=== PATIENT | female | born 1950 | race Caucasian/White ===

== ENCOUNTER 2017-09-10 17:40 | Emergency (ER) | payer MEDICARE, MEDICAID, SELFPAY ==
[2017-09-10 17:40] VITALS: BP 195/78; PULSE 70; RESP 16; TEMP 36.8; O2SAT 98; BMI 31.1
[2017-09-10 18:17] LABS: Bacteria 0 SEEN /hpf (None Seen); Mucous, Urine 0 SEEN /hpf (<or=2+)
[2017-09-10] MEDS: 0.9% Normal Saline 1,000 ML 1000 ML IV (18:18)
[2017-09-10 18:23] LABS: Color, Urine Red (Yellow); Glucose, Dipstick Normal (Normal); Ketone-Dipstick 15 mg/dl (Negative); Leukocyte Esterase-Dipstick 500 /ul (Negative); Nitrite-Dipstick Negative (Negative); Occult Blood-Urine 250 /ul (Negative); Protein-Dipstick 500 mg/dl (Negative); Specific Gravity, Urine 1.015 (1.002-1.030); Urine Bilirubin Dipstick Negative (Negative); Urine Clarity Turbid (Clear); Urine Urobilinogen Normal (Normal); Urine pH 6.5 (5.0 - 8.0)
[2017-09-10 18:31] LABS: Absolute Lymphocyte Count 1.44 X10^3/ul (0.83-4.51); Absolute Neutrophil Count 7.9 X10^3/uL (2.0-7.7); Basophil# 0.01 X10^3/uL; Basophil% 0.1 % (0-1); Eosinophil# 0.09 X10^3/uL; Eosinophils% 0.9 % (0-5); Hematocrit 36.3 % (37-47); Lymphocyte # 1.44 X10^3/ul (4.0); Lymphocyte % 14.4 % (19-41); Mean Corp Hgb Conc 33.1 g/gl (32-36); Mean Corpuscular Hgb 30.5 pg (27.0-32.0); Mean Corpuscular Volume 92.1 fL (81-99); Mean Platelet Vol. 9.6 fl (6.2-12.0); Monocyte# 0.54 X10^3/uL; Monocyte% 5.4 % (0-10); Neutrophil # 7.93 X10^3/uL (2.7-7.7); Neutrophil % 79.1 % (47-70); Platelet Count 250 K/mm3 (150-450); RBC Distribution Width CV 13.8 % (11.6-14.6); RBC Distribution Width SD 46.9 fl (35.1-43.9); Red Blood Count 3.94 M/mm3 (4.2-5.4)
[2017-09-10 18:35] LABS: Squamous Epithelial Cells - UA 0-5 SEEN /hpf (5-10)
[2017-09-10 18:36] LABS: POSITIVE COUNT NO; POSITIVE DIFFERENTIAL NO; POSITIVE MORPHOLOGY NO
[2017-09-10 18:37] LABS: Red Blood Cells-Urine > 100 SEEN /hpf (0-5); White Blood Cells 10-25 SEEN /hpf (0-5)
[2017-09-10 18:40] LABS: Anion Gap 11 (5-15); BUN 33 mg/dL (7-18); BUN/Creat Ratio 29.7 RATIO (10-20); Calcium,Total 8.6 mg/dL (8.5-10.1); Chloride 98 mmol/L (98-107); Creatinine, Serum 1.11 mg/dL (0.55-1.02); EST Glomerular Filtration Rate 52 mL/min (>60); Est Glom Filt Rate - Afr Amer 63 mL/min (>60); Glucose 209 mg/dL (74-106); Potassium 4.1 mmol/L (3.5-5.1); Sodium Level 131 mmol/L (136-145)
--- NOTE | 2017-09-10 19:19 | ED.VISSUMM ---
- ER Visit Summary Date of Service: 09/10/17 Chief Complaint: Blood in urine History of Present Illness: The patient is a 67 F presenting with blood in urine. She states this started today. She complains of dysuria, hematuria, urinary frequency. Denies urinary retention. She has mild diarrhea. Denies fever. Denies abdominal pain. Denies back pain. She is on Plavix. Denies other complaints. Physical Examination: Vitals are stable. Patient is afebrile. Alert no acute distress. HEENT exam is unremarkable. Neck is supple. Lungs are clear and equal bilaterally. Heart is regular rate and rhythm. Abdomen is soft nontender nondistended. Back is nontender Extremities are unremarkable. Skin is warm and dry. No focal neurologic deficit. Remainder of exam is unremarkable. Emergency Department Course and Treatment: CBC is unremarkable. Chemistries show BUN 33, creatinine 1.11. This is improved from baseline. Urinalysis shows 10-25 white blood cells, over 100 red blood cells. Urine culture was sent. She states she has had problems with multiple antibiotics in the past and has done well with Bactrim. She is given Bactrim and a prescription for Bactrim. She is given urology for follow-up. She is advised signs and symptoms for which to return to the ED. Agreeable with discharge home and will return to ED if she has worsening complaints. Disposition: Discharge home Impression: Hematuria This note was generated with [employer] dictation software. It may contain incorrect words, spelling, and punctuation that were not noted in review of the chart prior to signing ED Disposition - Plan for ED Patient: Chief Complaint: Complaint Referrals: Anali Daley DO [Primary Care Provider] -
--- NOTE | 2017-09-10 19:22 | ED.DEP ---
ED Disposition - Plan for ED Patient: Chief Complaint: Complaint Instructions: ED UTI Cystitis Female, ED Hematuria Prescriptions: Smz/Tmp Ds [Bactrim Ds] 1 tablet PO BID #14 tablet Referrals: Anali Daley DO [Primary Care Provider] - Oleg Diehl MD [STAFF PHYSICIAN] -
[2017-09-10] MEDS: Smz/Tmp Ds Tablet 1 TABLET PO (19:32)
[2017-09-10 19:38] VITALS: RESP 16
== END 2017-09-10 19:38 | disposition home or self-care (01) ==
LOC: ED 18:20
PROVIDERS: Emergency Provider Emergency Medicine; Family Provider Family Medicine; PCP Family Medicine
DX: R31.9 Hematuria, unspecified (principal); R30.0 Dysuria; R35.0 Frequency of micturition; R19.7 Diarrhea, unspecified; I25.10 Atherosclerotic heart disease of native coronary artery without angina pectoris; I10 Essential (primary) hypertension; E11.9 Type 2 diabetes mellitus without complications; Z79.02 Long term (current) use of antithrombotics/antiplatelets; Z79.82 Long term (current) use of aspirin; Z79.899 Other long term (current) drug therapy; I25.2 Old myocardial infarction; Z95.1 Presence of aortocoronary bypass graft
CPT/HCPCS: 80048; 81001; 85025; 87086; 87088; 87186; 96360; 99284; J7030; A4216

== ENCOUNTER → 2017-09-28 16:17 | Outpatient (CLI) | payer MEDICARE, MEDICAID, SELFPAY | PROVIDERS: Family Provider Family Medicine; PCP Family Medicine; Visit Provider Family Medicine | DX: R30.0 Dysuria (principal) | CPT/HCPCS: 87086; 87088; 87186 ==

== ENCOUNTER → 2017-12-07 12:44 | Outpatient (CLI) | payer MEDICARE, MEDICAID, SELFPAY ==
--- NOTE | 2017-12-07 12:46 | CDU_ITS ---
Reason For Study: Carotid bruits Rt. Velocities/BP Lt. Velocities/BP Prox CCA 84.4/15.2 cm/sec. Prox CCA 97.3/15.8 cm/sec. Mid CCA 80.9/14.7 cm/sec. Mid CCA 95.6/17.0 cm/sec. Dist CCA 79.7/16.4 cm/sec. Dist CCA 87.4/15.2 cm/sec. Prox ICA 109.0/29.5 cm/sec. Prox ICA 76.8/21.7 cm/sec. Mid ICA 101.0/27.5 cm/sec. Mid ICA 76.8/22.3 cm/sec. Dist ICA 99.7/25.8 cm/sec. Dist ICA 90.9/21.7 cm/sec. Rt. ICA/CCA = 1.4. Lt. ICA/CCA = .95. Prox ECA 195.0/12.8 cm/sec. Prox ECA 182.0/18.7 cm/sec. Rt. Vert. 162.0/12.8 cm/sec. Lt. Vert. 41.0/9.4 cm/sec. Right Extracranial There is intimal thickening but no significant atherosclerotic plaque noted in the right common carotid artery. There is heterogeneous, irregular atherosclerotic plaque noted in the right internal carotid artery. There is intimal thickening but no significant atherosclerotic plaque noted in the right external carotid artery. Antegrade flow is noted in the right vertebral artery. Left Extracranial There is intimal thickening but no significant atherosclerotic plaque noted in the left common carotid artery. There is homogeneous, smooth atherosclerotic plaque noted in the left internal carotid artery. There is homogeneous, smooth atherosclerotic plaque noted in the left external carotid artery. Antegrade flow is noted in the left vertebral artery. Procedure Carotid Duplex [id number]. Exam performed in department. Interpretation Summary Mild (<50%) stenosis right extracranial internal carotid. Mild (<50%) stenosis left extracranial internal carotid. Flow within the vertebral arteries is antegrade bilaterally. Ordering Physician: Lainey Anderson Referring Physician: Anali Daley Performed By: Silvia Bella RVT
== END ==
PROVIDERS: Family Provider Family Medicine; PCP Family Medicine; Visit Provider Physician Assistant Medical
DX: R09.89 Other specified symptoms and signs involving the circulatory and respiratory systems (principal)
CPT/HCPCS: 93880

== ENCOUNTER 2017-12-27 10:54 | Emergency (ER) | payer MEDICARE, MEDICAID, SELFPAY ==
[2017-12-27 10:55] VITALS: BP 169/74; PULSE 64; RESP 18; TEMP 36.6; O2SAT 98; BMI 30.9
--- NOTE | 2017-12-27 12:15 | ED.VISSUMM ---
- ER Visit Summary Date of Service: 12/27/17 Chief Complaint: Floaters right eye History of Present Illness: The patient is a 67 F reports noticing a floater in her right upper vision from her right eye yesterday. Today she has multiple floaters and states that looks like a puddle. She does report occasional bright light in the right peripheral vision. She denies any eye pain. She has no change in her vision. She wears reading glasses as needed. She has not had any prior eye surgeries. Physical Examination: Vital signs are significant for blood pressure 169/74, otherwise unremarkable. Head and neck examination is unremarkable. Pupils are equal and reactive. She has no injection. Extraocular movements are fully intact. Red reflex was noted but is unable to further evaluate posterior segment secondary to myosis. There is no eyelid edema. Remainder of exam is unremarkable. Test Results: Visual acuity: Right eye 20/40, left eye 20/30, bilateral 20/40. Emergency Department Course and Treatment: Patient was discussed with Dr. Barrett from ophthalmology. He advises the patient is to follow-up in the office on Thursday. If her symptoms worsen at all through the she is to call him. Follow-up information has been provided to the patient. Treatment Plan: [] Disposition: Discharge Impression: Floaters right eye This note was generated with [employer] dictation software. It may contain incorrect words, spelling, and punctuation that were not noted in review of the chart prior to signing ED Disposition - Plan for ED Patient: Disposition: Home or Assisted Living Chief Complaint: Eye Problem Instructions: What Are Flashes and Floaters?, Treating Flashes and Floaters Referrals: Isrrael Barrett MD [STAFF PHYSICIAN] - 2 Days
[2017-12-27 12:16] VITALS: BP 196/64; PULSE 60; RESP 16; O2SAT 96
== END 2017-12-27 12:32 | disposition home or self-care (01) ==
LOC: ED 12:21
PROVIDERS: Emergency Provider Emergency Medicine; Family Provider Family Medicine; PCP Family Medicine
DX: H43.391 Other vitreous opacities, right eye (principal); H57.03 Miosis; I48.0 Paroxysmal atrial fibrillation; I25.10 Atherosclerotic heart disease of native coronary artery without angina pectoris; J44.9 Chronic obstructive pulmonary disease, unspecified; E11.9 Type 2 diabetes mellitus without complications; I10 Essential (primary) hypertension; Z79.82 Long term (current) use of aspirin; Z79.899 Other long term (current) drug therapy; Z95.1 Presence of aortocoronary bypass graft; Z95.5 Presence of coronary angioplasty implant and graft; Z87.891 Personal history of nicotine dependence
CPT/HCPCS: 99282

== ENCOUNTER → 2020-07-23 | Outpatient (CLI) | payer MEDICARE, MEDICAID, SELFPAY ==
[2019-12-15 14:09] VITALS: BMI 30.1
== END | disposition home or self-care (01) ==
LOC: LABSPEC 07-24 14:41
PROVIDERS: PCP Family Medicine; Visit Provider Obstetrics & Gynecology
DX: R30.0 Dysuria (principal); R39.15 Urgency of urination; R35.0 Frequency of micturition
CPT/HCPCS: 87086; 87088; 87186

== ENCOUNTER → 2020-08-08 | Outpatient (CLI) | payer MEDICARE, MEDICAID, SELFPAY ==
[2019-12-15 14:09] VITALS: BMI 30.1
== END | disposition home or self-care (01) ==
LOC: LABSPEC 16:28
PROVIDERS: PCP Family Medicine; Visit Provider Obstetrics & Gynecology
DX: R30.0 Dysuria (principal); Z87.440 Personal history of urinary (tract) infections
CPT/HCPCS: 87077; 87086; 87088; 87186

== ENCOUNTER → 2021-02-25 | Outpatient (CLI) | payer MEDICARE, MEDICAID, SELFPAY ==
[2019-12-15 14:09] VITALS: BMI 30.1
== END | disposition home or self-care (01) ==
LOC: LABSPEC 15:36
PROVIDERS: PCP Family Medicine; Visit Provider Obstetrics & Gynecology
DX: N39.0 Urinary tract infection, site not specified (principal)
CPT/HCPCS: 87077; 87086; 87088; 87186

== ENCOUNTER → 2021-03-26 17:24 | Outpatient (CLI) | payer MEDICARE, MEDICAID, SELFPAY | LOC: LAB 17:25 → LABSPEC 20:18 | PROVIDERS: PCP Family Medicine; Visit Provider Obstetrics & Gynecology | DX: N39.0 Urinary tract infection, site not specified (principal) | CPT/HCPCS: 87077; 87086; 87088; 87186 ==

== ENCOUNTER 2021-05-18 13:07 | Emergency (ER) | payer MEDICARE, MEDICAID, SELFPAY ==
[2021-05-18 13:08] VITALS: BP 218/83; PULSE 97; RESP 19; TEMP 36.3; O2SAT 104; BMI 32.5
== END 2021-05-18 14:53 | disposition left against medical advice (07) ==
LOC: ED 15:05
PROVIDERS: PCP Family Medicine
DX: T14.8XXA Other injury of unspecified body region, initial encounter (principal); Z53.21 Procedure and treatment not carried out due to patient leaving prior to being seen by health care provider; X58.XXXA Exposure to other specified factors, initial encounter; Y93.9 Activity, unspecified; Y92.9 Unspecified place or not applicable; Y99.9 Unspecified external cause status

== ENCOUNTER → 2021-06-07 | Outpatient (CLI) | payer MEDICARE, MEDICAID, SELFPAY ==
[2021-06-07 15:26] LABS: Mucous, Urine 0 SEEN /hpf (<or=2+)
[2021-06-07 16:51] LABS: Glucose, Dipstick Normal (Normal); Ketone-Dipstick 15 mg/dl (Negative); Leukocyte Esterase-Dipstick 500 /ul (Negative); Nitrite-Dipstick Negative (Negative); Occult Blood-Urine 10 /ul (Negative); Protein-Dipstick 15 mg/dl (Negative); Urine Bilirubin Dipstick Negative (Negative); Urine Urobilinogen Normal (Normal)
[2021-06-07 16:56] LABS: Color, Urine Yellow (Yellow)
[2021-06-07 16:57] LABS: Urine Clarity Sl Cloudy (Clear)
[2021-06-07 17:09] LABS: Amorphous Sediment 1+ URATE; Bacteria 1+ /hpf (None Seen); Red Blood Cells-Urine 0-5 SEEN /hpf (0-5); Squamous Epithelial Cells - UA 0-5 SEEN /hpf (5-10); White Blood Cells 10-25 SEEN /hpf (0-5)
== END | disposition home or self-care (01) ==
LOC: LABSPEC 15:26
PROVIDERS: PCP Family Medicine; Referring Provider Nurse Practitioner Family; Visit Provider Nurse Practitioner Family
DX: R30.0 Dysuria (principal); Z79.899 Other long term (current) drug therapy
CPT/HCPCS: 81001; 87086; 87088

== ENCOUNTER → 2021-07-01 09:55 | Outpatient (CLI) | payer MEDICARE, SELFPAY ==
[2021-07-01 11:04] LABS: AST(SGOT) 19 U/L (15-37); Alanine Aminotransfer ALT/SGPT 26 U/L (13-56); Albumin, Serum 3.4 g/dL (3.2-5.0); Alkaline Phosphatase 70 U/L (45-117); Bilirubin, Direct 0.12 mg/dL (0.00-0.30); Cholesterol 348 mg/dL (200); Globulin 3.9 g/dL (2.2-4.2); High Density Lipoprotein 117 mg/dL; Protein, Total 7.3 g/dL (6.4-8.2); Triglycerides 52 mg/dL; Very Low Density Lipoprotein 10 mg/dL (5-40)
== END ==
PROVIDERS: PCP Family Medicine; Visit Provider Nurse Practitioner Gerontology
DX: E78.00 Pure hypercholesterolemia, unspecified (principal); I25.810 Atherosclerosis of coronary artery bypass graft(s) without angina pectoris
CPT/HCPCS: 36415; 80061; 80076

== ENCOUNTER → 2022-07-15 | Outpatient (CLI) | payer MEDICARE, SELFPAY ==
--- NOTE | 2022-07-15 11:00 | RAD_ITS ---
STUDY: X-RAY CHEST REASON FOR EXAM: Female, 72 years old. dyspnea TECHNIQUE: Single frontal view of the chest. COMPARISON: June 23, 2016 FINDINGS: Sternotomy wires. The lungs are clear and expanded. There is no demonstrated pleural abnormality. Normal size heart. Normal mediastinum and hank. Normal visualized pulmonary arteries. Normal visualized aortic arch and descending thoracic aorta. Normal visualized thoracic spine. Normal visualized ribs, clavicles, and shoulders. Gas-filled loops of small bowel. RAD/Chest PA and Lateral IMPRESSION: No acute disease except for possible ileus Electronically Signed: Dom Marroquin MD at 17:34 EST ,
--- NOTE | 2022-07-17 07:59 | PFT ---
INTRODUCTION: The patient is a 72-year-old female that presents for pulmonary function studies secondary to a diagnosis of COPD. Respiratory therapy reported good patient effort. Bronchodilators were used during testing. INTERPRETATION: Forced expiration spirometry demonstrates the presence of a moderately severe large airways obstructive ventilatory defect. There was a significant response to aerosolized bronchodilators noted, based upon change in FVC. Spirograms are of fair quality but do not plateau indicating slow emptying of the lungs. Body plethysmography was performed and revealed an elevated TLC and RV, indicative of underlying hyperinflation and air trapping. Diffusing capacity by single breath CO was reduced to 49% of predicted. IMPRESSION: Partially reversible moderately severe large airways obstructive ventilatory defect with associated hyperinflation, air trapping and symmetric reduction in diffusing capacity.
== END | disposition home or self-care (01) ==
PROVIDERS: PCP Family Medicine; Visit Provider Internal Medicine
DX: J44.9 Chronic obstructive pulmonary disease, unspecified (principal)
CPT/HCPCS: 71046; 94060; 94726; 94729

== ENCOUNTER → 2022-07-17 | Outpatient (CLI) | payer MEDICARE, SELFPAY ==
[2022-07-17 13:34] LABS: Absolute Lymphocyte Count 1.19 X10^3/uL (0.83-4.51); Absolute Neutrophil Count 4.6 X10^3/uL (2.0-7.7); Basophil# 0.01 X10^3/uL; Basophil% 0.2 % (0-1); Eosinophil# 0.07 X10^3/uL; Eosinophils% 1.1 % (0-5); Hematocrit 40.9 % (37-47); Hemoglobin 13.6 g/dL (12.0-15.0); Lymphocyte # 1.19 X10^3/ul (0.83-4.51); Lymphocyte % 18.9 % (19-41); Mean Corp Hgb Conc 33.3 g/dL (32-36); Mean Corpuscular Hgb 31.2 pg (27.0-32.0); Mean Corpuscular Volume 93.8 fL (81-99); Mean Platelet Vol. 9.2 fl (6.2-12.0); Monocyte# 0.44 X10^3/uL; NRBC Flagged by Analyzer 0 % (0-5); Neutrophil # 4.57 X10^3/uL (2.7-7.7); Neutrophil % 72.6 % (47-70); Platelet Count 300 K/mm3 (150-450); RBC Distribution Width CV 14.6 % (11.6-14.6); RBC Distribution Width SD 50.3 fl (35.1-43.9); Red Blood Count 4.36 M/mm3 (4.2-5.4); White Blood Count 6.3 K/mm3 (4.4-11.0)
[2022-07-17 13:45] LABS: D-Dimer Quantitative (DVT/PE) 0.35 FEU/ug/m (0.27-0.49)
[2022-07-17 13:50] LABS: BNP,B-Type NATRIURETIC PEPTIDE 106.5 pg/mL (0-100)
[2022-07-17 13:51] VITALS: PULSE 100; PULSE 113; PULSE 119; PULSE 123; PULSE 125; PULSE 127; PULSE 91; PULSE 93; O2SAT 97; O2SAT 98
--- NOTE | 2022-07-21 13:23 | PCM.PSN.6M ---
PSN 6 Minute Walk Test 6 Minute Walk Test 6 Minute Walk Test: 6 Minute Walk Test PSN:6-Minute Walk Test Start: 07/17/22 13:51 Freq: Status: Discharge Protocol: RESP.6MINW Document 07/17/22 13:51 [facility] (Rec: 07/17/22 13:56 [facility] [id number]) 6 Minute Walk Test Date Performed 07/17/22 Time Performed 12:30 Height 5 ft 3 in Weight: 93.44 kg Weight in Pounds 206.[address]: Anjel Mtz Assistive device used: None Pre-test Oxygen Delivery Method Room Air Pulse Ox (%) 97 Pulse Rate (60-100 beats/min) 93 Dyspnea Americo Scale (0-10) 2 Reported Symptoms Increased Work of Breathing 1st minute Oxygen Delivery Method Room Air Pulse Ox (%) 98 Pulse Rate (60-100 beats/min) 100 Dyspnea Americo Scale (0-10) 3 Number of Rests Taken 0 Reported Symptoms Increased Work of Breathing 2nd minute Oxygen Delivery Method Room Air Pulse Ox (%) 98 Pulse Rate (60-100 beats/min) 113 H Dyspnea Americo Scale (0-10) 4 Number of Rests Taken 1 Reported Symptoms Increased Work of Breathing 3rd minute Oxygen Delivery Method Room Air Pulse Ox (%) 98 Pulse Rate (60-100 beats/min) 127 H Dyspnea Americo Scale (0-10) 5 Number of Rests Taken 0 Reported Symptoms Increased Work of Breathing 4th minute Oxygen Delivery Method Room Air Pulse Ox (%) 97 Pulse Rate (60-100 beats/min) 125 H Dyspnea Americo Scale (0-10) 5 Number of Rests Taken 1 Reported Symptoms Increased Work of Breathing 5th minute Oxygen Delivery Method Room Air Pulse Ox (%) 98 Pulse Rate (60-100 beats/min) 119 H Dyspnea Americo Scale (0-10) 5 Number of Rests Taken 1 Reported Symptoms Increased Work of Breathing 6th minute Oxygen Delivery Method Room Air Pulse Ox (%) 97 Pulse Rate (60-100 beats/min) 123 H Dyspnea Americo Scale (0-10) 5 Number of Rests Taken 0 Reported Symptoms Increased Work of Breathing Post-test Oxygen Delivery Method Room Air Pulse Ox (%) 98 Pulse Rate (60-100 beats/min) 91 Dyspnea Americo Scale (0-10) 3 Reported Symptoms Increased Work of Breathing Full Laps Walked 10 Partial Lap, Number of Tiles Walked 17 Total Distance Walked (ft) 607 Interpretation Interpretation: The patient was able to ambulate 607 feet over the course of 6 minutes on room air with no assistive devices, but 3 breaks. The patient experienced no significant desaturation, but did have a peak heart rate of 127 bpm. These findings are consistent with a cardiovascular limitation exercise tolerance. Recommendations Recommendations: No supplemental oxygen is indicated at this time. Patient may benefit from a cardiovascular work-up if not done previously.
== END | disposition home or self-care (01) ==
PROVIDERS: PCP Family Medicine; Visit Provider Internal Medicine
DX: J44.9 Chronic obstructive pulmonary disease, unspecified (principal); I25.810 Atherosclerosis of coronary artery bypass graft(s) without angina pectoris
CPT/HCPCS: 36415; 83880; 85025; 85379; 94618

== ENCOUNTER → 2022-08-12 | Outpatient (CLI) | payer MEDICARE, SELFPAY ==
--- NOTE | 2022-08-12 06:56 | ECHOD_ITS ---
Reason For Study: CAD/ASHD Procedure This was a 2D Doppler, Color Flow transthoracic echocardiogram. The study was technically difficult. Exam performed in department. Left Ventricle Normal LV size. Left ventricular systolic function is normal. The estimated ejection fraction is 60 %. Post operative septal motion. Diastolic function is indeterminate. Right Ventricle Normal RV size. Normal systolic function. Atria The left atrium is moderately enlarged. Normal right atrium. No doppler evidence for ASD. Mitral Valve There is no mitral annular calcification. Normal mitral valve. Mild-Moderate (1-2+) mitral valve insufficiency. Tricuspid Valve Normal tricuspid valve. Mild tricuspid valve insufficiency. Right ventricular systolic pressure estimated to be 37 mmHg. Aortic Valve Trisinus/trileaflet aortic valve. Mild focal aortic valve calcification. Pulmonic Valve The pulmonic valve is not well visualized. Great Vessels Normal sized aortic root. Pericardium/Pleural No pericardial effusion. MMode/2D Measurements & Calculations LVIDd: 4.6 cm IVSd: 0.99 cm Ao root diam: 3.1 cm LVIDs: 2.9 cm LVPWd: 1.0 cm RVDd: 3.1 cm FS: 37.8 % LAV(MOD-bp): 74.2 ml LA A4 area: 23.3 cm2 LA dimension(2D): 4.9 cm LAV(MOD-bp) Indexed: 38.1 ml/m2 LAV(MOD-sp2): 74.4 ml LAV(MOD-sp4): 78.0 ml RA A4 area: 13.9 cm2 Doppler Measurements & Calculations MV E max marco a: 150.5 cm/sec Ao V2 max: 117.6 cm/sec LV V1 max: 82.6 cm/sec Ao max P.5 mmHg LV V1 max P.7 mmHg Ao V2 mean: 81.5 cm/sec LV V1 mean P.6 mmHg Ao mean P.1 mmHg LV V1 mean: 58.6 cm/sec Ao V2 VTI: 28.6 cm LV V1 VTI: 20.9 cm AV (velocity ratio): 0.73 MR max marco a: 492.3 cm/sec PA V2 max: 96.6 cm/sec TR max marco a: 288.5 cm/sec MR max P.9 mmHg TR max P.4 mmHg ECHO/Echo Complete Interpretation Summary The study was technically difficult. Left ventricular systolic function is normal. The estimated ejection fraction is 60 %. Post operative septal motion. The left atrium is moderately enlarged. Mild-Moderate (1-2+) mitral valve insufficiency. Mild tricuspid valve insufficiency. Mild focal aortic valve calcification. Right ventricular systolic pressure estimated to be 37 mmHg. Diastolic function is indeterminate. Ordering Physician: Les Hamilton Referring Physician: Anali Daley Performed By: Jacqueline Torres, RDCS, RVT
--- NOTE | 2022-08-12 09:04 | STRESSREP ---
Stress Test Report Date: 08-12-2022 Procedure: Pharmacologic stress nuclear imaging study Indications: Shortness of breath/dyspnea on exertion; CAD; PCI; CABG; atrial fibrillation Consent: Per the patient Procedure: The patient underwent pharmacologic (Regadenoson 0.4mg ) evaluation with a peak heart rate of 96 beats per minute (64%predicted maximal heart rate) and a resting blood pressure of 148/80 mmHg and a peak blood pressure of 148/80 mmHg. The baseline ECG demonstrated atrial fibrillation; poor R wave progression; nonspecific ST/T wave abnormality. The peak pharmacologic ECG demonstrated no obvious ECG changes. There was a rare PVC during infusion and recovery. There was no complaint of chest discomfort during pharmacologic infusion or recovery. The examination was discontinued secondary to completion of protocol. Impression: 1. Pharmacologic (Regadenoson) evaluation 2. Peak pharmacologic ECG with no obvious ECG changes. 3. There was a rare PVC during infusion and recovery. 4. Nuclear images pending Myocardial perfusion imaging study: Technique: The patient was injected with 12.0 millicuries of technetium 99m Cardiolite and subsequently rest SPECT Cardiolite nuclear imaging was obtained in the horizontal long, vertical long, and short axis views. The patient underwent pharmacologic (Regadenoson) evaluation with a peak heart rate of 96 beats per minute (64% percent predicted maximal heart rate) and a resting blood pressure of 148/80 mmHg and a peak blood pressure of 148/80 mmHg. The patient was injected with 33.1 millicuries of technetium 99m Cardiolite and subsequently stress SPECT Cardiolite nuclear imaging was obtained in the horizontal long, vertical long, and short axis views. A gated Cardiolite study at peak stress was obtained. Interpretation: Rest and stress SPECT Cardiolite nuclear imaging status post realignment, normalization, and attenuation correction demonstrate on the preattenuation correction images the appearance of relative uniform tracer uptake and myocardial perfusion appearing within normal limits at rest and status post-rest there is notation of an area of diminished myocardial perfusion/tracer uptake in the mid inferior segments. These findings are not appreciated on the post attenuation correction images. There is end systolic thickening and brightening. The gated Cardiolite study demonstrates myocardial thickening and inward wall motion. The reported LVEF is 72%. Impression: 1. Rest and stress SPECT current nuclear imaging, based upon the preattenuation correction images, raise concern of an area of post stress-induced myocardial ischemia in the mid inferior segments. 2. The gated Cardiolite study reports an LVEF of 72%. This note was generated with [employer] software. It may contain incorrect words, spelling, and punctuation that were not noted in checking the note before signing.
== END | disposition home or self-care (01) ==
PROVIDERS: PCP Family Medicine; Visit Provider Internal Medicine Cardiovascular Disease
DX: I48.0 Paroxysmal atrial fibrillation (principal); Z95.1 Presence of aortocoronary bypass graft; I25.10 Atherosclerotic heart disease of native coronary artery without angina pectoris; I36.1 Nonrheumatic tricuspid (valve) insufficiency; I34.0 Nonrheumatic mitral (valve) insufficiency; Z95.5 Presence of coronary angioplasty implant and graft; E78.00 Pure hypercholesterolemia, unspecified; I10 Essential (primary) hypertension
CPT/HCPCS: 78452; 93017; 93306; A9500; A4216; J2785

== ENCOUNTER 2022-08-30 13:35 | Inpatient (IN) | payer MEDICARE, SELFPAY ==
[2022-08-30] VITALS (8 sets, daily range): BP systolic 95–129; BP diastolic 58–76; PULSE 65–86; RESP 16–20; TEMP 36.4–36.8; O2SAT 96–98; BMI 36.6; BMI 36.1
--- NOTE | 2022-08-30 14:09 | EKG12_ITS ---
Test Reason : SOB Blood Pressure : / mmHG Vent. Rate : 073 BPM Atrial Rate : 340 BPM P-R Int : 000 ms QRS Dur : 086 ms QT Int : 428 ms P-R-T Axes : 000 030 126 degrees QTc Int : 471 ms Atrial fibrillation Low voltage QRS Septal infarct , age undetermined Abnormal ECG Confirmed by NOHEMY PEARL, JACKELIN ([id number]), script editor MARY GALLEGO ([id number]) on 09/01/2022 9:36:53 AM Referred By: BB Confirmed By:JACKELIN SLATER MD
--- NOTE | 2022-08-30 14:10 | ED.VIS.DYS ---
HPI History of Present Illness Chief Complaint: Shortness of Breath Informant: patient and family (daughter) Onset/Context/Timing Onset: - (worse than usual overnight and this AM) Timing: Intermittent Quality: Positive for Dyspnea on exertion Current Severity: Moderate Maximum Severity: Moderate Worsened by: Exertion, Lying flat and Coughing Relieved by: Rest Associated Symptoms cough Chest Pain: Positive for None (except bilat lower rib soreness w/ coughing only) Narrative Narrative: Patient states she is chronically dyspneic with exertion, but she has to walk quite a bit to get short of breath and since overnight she is very short of breath with very little exertion, much worse than usual. No exertional chest discomfort. She has a cough that is nonproductive, she does have a chronic cough. She has chronic orthopnea that is unchanged and usually sleeps in a recliner. She states she had some swelling in her feet overnight, that comes and goes, nothing unusual or much worse than usual. She had anything to eat was a salad about 24 hours ago. She has been drinking fluids however, and not urinating nearly as much as she would expect for how much she is drinking. She states she was diagnosed with renal failure in the past but does not see a wildlife ecology professor for any reason. Because of her chronic dyspnea with exertion she saw pulmonology at [facility] in July, and does not know if she has a definitive diagnosis or not, she also saw cardiology because she had A. fib once and she is still anticoagulated on Eliquis. Has not been feeling any palpitations recently. No fevers or chills, she checked her temperature because I always do and yesterday it was 94.8. Patient is poor historian. She states she has basically been in her house for the past 2 weeks after seeing her daughter, no known sick contacts. No travel out of the area. No unilateral leg pain or swelling. No bleeding from anywhere. [facility] Medical History Abnormal stress test Atherosclerosis of coronary artery bypass graft without angina pectoris Bilateral carotid bruits COPD suggested by initial evaluation Essential hypertension Hyperlipidemia Hypersomnia Hypertension Morbid obesity due to excess calories New onset atrial fibrillation Non-rheumatic tricuspid valve insufficiency Nonrheumatic mitral (valve) insufficiency Presence of stent in coronary artery (~09/14/14) Pure hypercholesterolemia Home Medications albuterol sulfate 90 mcg/actuation aerosol inhaler 1 - 2 puff Q4H PRN PRN Sob &/Or Wheezing 09/10/17 [History Last Taken 08/30/22] Lactobacillus acidophilus (Acidophilus chewable tablet) 1 tab PO DAILY stomach 11/17/18 [History Last Taken 08/30/22] nitroglycerin 0.4 mg sublingual tablet 0.4 mg sublingual Q5M PRN Chest Pain #90 tabs 12/15/19 [Rx Last Taken 08/29/22] cholecalciferol (vitamin D3) 125 mcg (5,000 unit) capsule 125 mcg PO DAILY supplement 06/07/21 [History Last Taken 08/30/22] ipratropium 0.5 mg-albuterol 3 mg (2.5 mg base)/3 mL nebulization soln 3 ml inhalation Q6H SOB 07/10/22 [History Last Taken 08/30/22] apixaban 5 mg tablet 5 mg PO BID blood thinner 08/30/22 [History Last Taken 08/30/22] atenolol 25 mg tablet 25 mg PO DAILY heart rate 08/30/22 [History Last Taken 08/30/22] clopidogrel 75 mg tablet 75 mg PO DAILY antiplatelet 08/30/22 [History Last Taken 08/30/22] isosorbide mononitrate 30 mg tablet,extended release 24 hr 30 mg PO DAILY blood pressure 08/30/22 [History Last Taken 08/30/22] lisinopril 10 mg tablet 10 mg PO DAILY blood pressure 08/30/22 [History Last Taken 08/30/22] Allergy/AdvReac Type Severity Reaction Status Date / Time azithromycin Allergy Hives Verified 08/30/22 13:36 [From Zithromax Z-Dago] ciprofloxacin Allergy Other Verified 08/30/22 13:36 Penicillins [PCN] Allergy Hives Verified 08/30/22 13:36 pineapple [Pineapple] Allergy Hives Verified 08/30/22 13:36 formoterol [From Dulera] AdvReac Severe Sore Verified 08/30/22 13:36 Throat & ear pain mometasone furoate AdvReac Severe Sore Verified 08/30/22 13:36 [From Dulera] Throat & ear pain metoprolol AdvReac Intermediate Does not Verified 08/30/22 13:36 control BP & she gets a headache dicyclomine AdvReac Mild Jittery Verified 08/30/22 13:36 prednisone AdvReac Other Verified 08/30/22 13:36 Family History Father Cancer Mother Hypertension Cancer Sister Breast cancer Brother CAD (coronary artery disease) Cancer Myocardial infarction stents Surgical History Aortocoronary bypass status (~04/18/01) History of section Presence of coronary angioplasty implant and graft (~09/14/14) Social History Smoking Status: Former smoker how long ago did patient quit smokin years ago alcohol intake: never substance use type: does not use caffeine: Yes Type: coffee Number of servings: 2 what type of physical activity do you participate in: walking frequency: daily duration: 60-90 minutes/day seatbelt use: always do you feel safe at home: Yes ROS ROS ED Constitutional Constitutional ED: Reports body ache(s), fatigue and malaise; Denies chills, fever(s) or headache(s) Eyes Eyes: Denies change in vision or diplopia ENT ENT ED: Denies rhinorrhea or sore throat Cardiovascular Cardiovascular: Reports orthopnea; Denies chest pain, palpitations or racing heartbeat Respiratory/Chest Respiratory/Chest: Reports cough, dyspnea on exertion and orthopnea; Denies sputum Gastrointestinal Gastrointestinal: Reports diarrhea; Denies abdominal pain, nausea or vomiting Genitourinary Genitourinary ED: Reports decreased urination; Denies dysuria or hematuria Musculoskeletal Musculoskeletal: Denies back pain or neck pain Integumentary Denies abscess or rash Neurologic Neurologic: Denies headache(s), paresthesias or weakness Psychiatric Psychiatric: Denies anxiety or suicidal thoughts Hematologic/Lymphatic Hematologic/Lymphatic: Reports easy bleeding and easy bruising EXAM Physical Exam Const Vital Signs: 08/30/22 13:36 08/30/22 13:51 08/30/22 16:12 Temperature 98.3 F Temperature Source Temporal Pulse Rate 86 79 Respiratory Rate 16 18 Respiratory Effort Short of Breath Respiratory Depth Normal Respiratory Pattern Normal Blood Pressure 129/76 H 119/65 Blood Pressure Mean 93 83 Pulse Ox 98 96 Oxygen Delivery Method Room Air Room Air Room Air 08/30/22 16:35 Temperature 97.6 F L Temperature Source Oral Pulse Rate 77 Respiratory Rate 20 H Respiratory Effort Respiratory Depth Respiratory Pattern Blood Pressure 128/72 H Blood Pressure Mean 90 Pulse Ox 97 Oxygen Delivery Method Room Air Positive well nourished and well developed Constitutional Narrative: Malaised-appearing, no distress General Appearance ED: well developed and NAD HEENT Reports moist mucous membranes normocephalic and atraumatic Eyes PERRL and EOMs intact bilaterally Neck full ROM and supple Resp normal respiratory effort and clear to auscultation bilaterally Cardio regular rate, regular rhythm and no murmurs Rate: Negative for tachycardic GI non-tender and non-distended Auscultation: normoactive bowel sounds Palpation: soft Back/Spine no CVA tenderness General Back: other FROM Extremity normal to inspection and no calf tenderness General Extremety ED: Negative for edema, pulses abnormal or tenderness General Extremity: Negative for edema or pulses abnormal Neuro oriented x3, CN's II-XII intact bilaterally and no sensory deficits noted Sensorium / Orientation: awake and alert Motor Exam: strength 5/5 throughout Psych mental status grossly normal Skin no rashes or lesions noted and no wounds MDM MDM MDM Narrative Medical decision making narrative: Work-up including cardiac and pulmonary etiologies, her BNP is significantly elevated to what it was a month ago, she has had an echocardiogram in that amount of time, I reviewed that outside report. She had some mild-moderate mitral valve insufficiency, but no other major abnormalities. Her EF is 60%. Her troponin is 389 in context of chronic mild creatinine elevation that is not significantly worse than usual. Given this I have concern about the patient's dyspnea potentially being cardiac in etiology. I discussed this with her, and her answer was I have a heart cath scheduled for 09/16 because my unix manager thinks this may be heart related as well. This information was not provided prior to this discussion. Given this I discussed with cardiology Dr. Delacruz who agrees with admitting the patient, they will consult, and they agree this is less likely to be pulmonary embolus specially with the patient therapeutic on apixaban. We discussed the possibility of performing CT angiography of the chest to rule out pulmonary embolus prior to undergoing heart catheterization, however given her lower EGFR, we both agree that the risks of an additional dye bolus/load outweigh the benefits of CTA given the low risk of pulmonary embolus and she has been therapeutic/anticoagulated. Patient is asymptomatic while lying at rest here. We did ambulate her, she did fairly well got a little dyspnea, but no hypoxemia. Her chest x-ray 2 views of my interpretation negative for any acute, radiology in agreement. No pulmonary edema. Discussed w/ hospitalist Dr. Williamson. Lab Data Attestation: I reviewed the patient's lab results. Labs: Laboratory Results - last 24 hr 08/30/22 08/30/22 08/30/22 14:20 14:20 14:20 WBC 7.6 RBC 4.05 L Hgb 12.6 Hct 37.5 MCV 92.6 MCH 31.1 MCHC 33.6 RDW Std Deviation 49.0 H RDW Coeff of Chaparro 14.4 Plt Count 288 MPV 9.3 Immature Gran % (Auto) 0.300 Neut % (Auto) 74.8 H Lymph % (Auto) 15.8 L [place] % (Auto) 8.1 Eos % (Auto) 0.7 Baso % (Auto) 0.3 Absolute Neuts (auto) 5.7 Absolute Lymphs (auto) 1.20 Nucleated RBC % 0 Sodium 137 Potassium 4.3 Chloride 105 Carbon Dioxide 20.0 L Anion Gap 12 BUN 33 H Creatinine 1.29 H Estim Creat Clear Calc 32.61 Est GFR (MDRD) Af Amer 52 L Est GFR (MDRD) Non-Af 43 L BUN/Creatinine Ratio 25.6 H Glucose 160 H Calcium 9.2 Troponin I High Sens 389 H* B-Natriuretic Peptide 752.7 H Radiography Diagnostic Testing: Clinical Impression(s) from Imaging Studies Chest X-Ray 08/30/22 14:40 IMPRESSION: No acute findings in the chest and unchanged when compared to 07/15/2022. Electronically Signed: Jean Jane MD at 14:56 EST , Rhythm Strip Rhythm Strip: A-fib Rate: 85 Ectopy: None EKG Initial EKG: Attestation: I personally reviewed and interpreted this EKG as follows: Interpretation: No Acute Injury Pattern and Atrial Fibrillation Prior EKG tracings: available for review (afib now, NSR then; morphology/axis same) Discharge Plan Dx/Rx/DC Orders Clinical Impression: Elevated troponin, BRIONES (dyspnea on exertion), Chronic renal insufficiency, Anticoagulated, Atrial fibrillation Disposition Disposition: Acute Care Hospital [facility] Discharge Date/Time: 08/30/22 16:55
[2022-08-30 14:29] LABS: Absolute Neutrophil Count 5.7 X10^3/uL (2.0-7.7); Basophil# 0.02 X10^3/uL; Basophil% 0.3 % (0-1); Eosinophil# 0.05 X10^3/uL; Eosinophils% 0.7 % (0-5); Hematocrit 37.5 % (37-47); Hemoglobin 12.6 g/dL (12.0-15.0); Lymphocyte % 15.8 % (19-41); Mean Corp Hgb Conc 33.6 g/dL (32-36); Mean Corpuscular Hgb 31.1 pg (27.0-32.0); Mean Corpuscular Volume 92.6 fL (81-99); Mean Platelet Vol. 9.3 fl (6.2-12.0); Monocyte# 0.62 X10^3/uL; Monocyte% 8.1 % (0-10); NRBC Flagged by Analyzer 0 % (0-5); Neutrophil % 74.8 % (47-70); Platelet Count 288 K/mm3 (150-450); RBC Distribution Width CV 14.4 % (11.6-14.6); Red Blood Count 4.05 M/mm3 (4.2-5.4); White Blood Count 7.6 K/mm3 (4.4-11.0)
--- NOTE | 2022-08-30 14:40 | RAD_ITS ---
EXAM: XR CHEST, 2 VIEWS CLINICAL INDICATION: Cough. SOB. TECHNIQUE: Frontal and lateral views of the chest. This report was created using [employer] (Former[employer]) report generation technology. COMPARISON: 07/15/2022. FINDINGS: LUNGS AND PLEURAL SPACES: Unremarkable. No pneumothorax. No effusion. No suspicious pulmonary nodules or infiltrates. HEART: Sternal wires from CABG procedure remain intact. MEDIASTINUM: Central airways and mediastinal contour are unremarkable. BONES/JOINTS: Unremarkable. SOFT TISSUES: Unremarkable. LYMPH NODES: Calcified nodes in the right hilum. RAD/Chest PA and Lateral IMPRESSION: No acute findings in the chest and unchanged when compared to 07/15/2022. Electronically Signed: Jean Jane MD at 14:56 EST ,
[2022-08-30 14:49] LABS: BNP,B-Type NATRIURETIC PEPTIDE 752.7 pg/mL (0-100)
[2022-08-30 15:05] LABS: Anion Gap 12 (5-15); BUN 33 mg/dL (7-18); BUN/Creat Ratio 25.6 RATIO (10-20); Calcium,Total 9.2 mg/dL (8.5-10.1); Chloride 105 mmol/L (98-107); Creatinine, Serum 1.29 mg/dL (0.55-1.02); EST Glomerular Filtration Rate 43 mL/min (>60); Est Glom Filt Rate - Afr Amer 52 mL/min (>60); Estimated Creatinine Clearance 32.61 ml/min; Glucose 160 mg/dL (74-106); Potassium 4.3 mmol/L (3.5-5.1); Sodium Level 137 mmol/L (136-145); Troponin-I HS 389 pg/mL (3.0-54.0)
--- NOTE | 2022-08-30 16:21 | HP.PCM.HOS_ITS ---
HPI - General General Date of Admission: 08/30/22 Date of Service: 08/30/22 Chief Complaint: shortness of breath HPI Narrative ANGELLA HARTLEY, is a 72 F with a PMh as outlined who presents via the ED on 08/10/2022 with a complaint of worsening shortness of breath. Patient has been experiencing shortness of breath for a while now and says it started since she had COVID in 2020. She has been following up with pulmonology and had a pulmonary exercise test as well as a 30-day event monitor which showed A. fib which she already has. She has also had pulmonary function test in July 2022 which showed partially reversible moderately severe large airway obstructive ventilatory defect with associated hyperinflation, air trapping and symmetric reduction in diffusing capacity. She had a pulmonary exercise test findings of which were consistent with a cardiovascular limitation of exercise tolerance. She subsequently did have an echo and a stress test and the stress test was abnormal so she has been scheduled to have cardiac cath on September 17. However she says her shortness of breath worsened over the past 2 days with associated orthopnea and PND. She could not ambulate very far distance without feeling very short of breath. She denied any chest pain but admitted to aching pain in her left shoulder. She denied any palpitations or dizziness, nausea vomiting abdominal pain or lower extremity swelling. Review of symptoms otherwise negative. Vitals in the ED were blood pressure 128/72 with pulse rate of 77, respiratory rate of 20 and temperature of 97.6 Fahrenheit. She was saturating at 97% on room air. CBC showed hemoglobin of 12.6 with WBC of 7.6 and platelet count of 288. Chemistry showed creatinine of 1.29, sodium of 137 and bicarb of 20. Initial troponin was 389 and BNP was 752.7. COVID and influenza screen was negative and chest x-ray showed no acute cardiopulmonary findings compared to 07/15/2022. She has been admitted to be managed for non-STEMI as well as acute on chronic heart failure with preserved ejection fraction. [facility] Medical History Abnormal stress test Atherosclerosis of coronary artery bypass graft without angina pectoris Bilateral carotid bruits COPD suggested by initial evaluation Essential hypertension Hyperlipidemia Hypersomnia Hypertension Morbid obesity due to excess calories New onset atrial fibrillation Non-rheumatic tricuspid valve insufficiency Nonrheumatic mitral (valve) insufficiency Presence of stent in coronary artery (~09/14/14) Pure hypercholesterolemia Home Medications albuterol sulfate 90 mcg/actuation aerosol inhaler 1 - 2 puff Q4H PRN PRN Sob &/Or Wheezing 09/10/17 [History Last Taken 08/30/22] Lactobacillus acidophilus (Acidophilus chewable tablet) 1 tab PO DAILY stomach 11/17/18 [History Last Taken 08/30/22] nitroglycerin 0.4 mg sublingual tablet 0.4 mg sublingual Q5M PRN Chest Pain #90 tabs 12/15/19 [Rx Last Taken 08/29/22] cholecalciferol (vitamin D3) 125 mcg (5,000 unit) capsule 125 mcg PO DAILY supplement 06/07/21 [History Last Taken 08/30/22] ipratropium 0.5 mg-albuterol 3 mg (2.5 mg base)/3 mL nebulization soln 3 ml inhalation Q6H SOB 07/10/22 [History Last Taken 08/30/22] apixaban 5 mg tablet 5 mg PO BID blood thinner 08/30/22 [History Last Taken 08/30/22] atenolol 25 mg tablet 25 mg PO DAILY heart rate 08/30/22 [History Last Taken 08/30/22] clopidogrel 75 mg tablet 75 mg PO DAILY antiplatelet 08/30/22 [History Last Taken 08/30/22] isosorbide mononitrate 30 mg tablet,extended release 24 hr 30 mg PO DAILY blood pressure 08/30/22 [History Last Taken 08/30/22] lisinopril 10 mg tablet 10 mg PO DAILY blood pressure 08/30/22 [History Last Taken 08/30/22] Allergy/AdvReac Type Severity Reaction Status Date / Time azithromycin Allergy Hives Verified 08/30/22 13:36 [From Zithromax Z-Dago] ciprofloxacin Allergy Other Verified 08/30/22 13:36 Penicillins [PCN] Allergy Hives Verified 08/30/22 13:36 pineapple [Pineapple] Allergy Hives Verified 08/30/22 13:36 formoterol [From Dulera] AdvReac Severe Sore Verified 08/30/22 13:36 Throat & ear pain mometasone furoate AdvReac Severe Sore Verified 08/30/22 13:36 [From Dulera] Throat & ear pain metoprolol AdvReac Intermediate Does not Verified 08/30/22 13:36 control BP & she gets a headache dicyclomine AdvReac Mild Jittery Verified 08/30/22 13:36 prednisone AdvReac Other Verified 08/30/22 13:36 Family History Father Cancer Mother Hypertension Cancer Sister Breast cancer Brother CAD (coronary artery disease) Cancer Myocardial infarction stents Surgical History Aortocoronary bypass status (~04/18/01) History of section Presence of coronary angioplasty implant and graft (~09/14/14) Social History Smoking Status: Former smoker how long ago did patient quit smokin years ago alcohol intake: never substance use type: does not use caffeine: Yes Type: coffee Number of servings: 2 what type of physical activity do you participate in: walking frequency: daily duration: 60-90 minutes/day seatbelt use: always do you feel safe at home: Yes ROS Constitutional Constitutional: Denies anorexia, chills, fatigue, fever(s) or weakness Eyes Eyes: Denies change in vision ENT HEENT: Denies dysphagia, epistaxis, headache(s), nasal congestion, nasal discharge or sore throat Cardiovascular Cardiovascular: Reports dyspnea on exertion, orthopnea and paroxysmal nocturnal dyspnea; Denies chest pain, edema, lightheadedness, palpitations, rapid heart rate or syncope Respiratory/Chest Respiratory/Chest: Reports dyspnea, shortness of breath at rest and shortness of breath with exertion; Denies cough, excessive phlegm production, hemoptysis, productive cough or wheezing Gastrointestinal Gastrointestinal: Denies abdominal pain, constipation, diarrhea, nausea or vomiting Genitourinary Genitourinary: Denies burning urination or dysuria Musculoskeletal Musculoskeletal: Denies arthralgias Neurologic Neurologic: Denies confusion, dizziness, focal weakness, headache(s), seizure- like activity or syncope Psychiatric Psychiatric: Denies anxiety or depression Hematologic/Lymphatic Hematologic/Lymphatic: Denies anemia Vital Signs Vital Signs Vital Signs: 08/30/22 13:36 08/30/22 13:51 08/30/22 16:12 Temperature 98.3 F Temperature Source Temporal Pulse Rate 86 79 Respiratory Rate 16 18 Respiratory Effort Short of Breath Respiratory Depth Normal Respiratory Pattern Normal Blood Pressure 129/76 H 119/65 Blood Pressure Mean 93 83 Pulse Ox 98 96 Oxygen Delivery Method Room Air Room Air Room Air Weight Weight: 207 lb Body Mass Index (BMI) 36.6 Physical Exam Const alert, oriented x3 and no apparent distress Constitutional Narrative: looks frail and tired General Appearance: cooperative HEENT normocephalic, head/scalp atraumatic, hearing grossly normal bilaterally and moist oral mucous membranes Mouth: oral and palatal mucosa normal Eyes PERRL, EOMs intact bilaterally and conjunctivae normal Neck no lymphadenopathy and supple Resp Resp Narrative: diminished breath sounds bilaterally, few crackles bilaterally, no wheezes. On room air. Cardio regular rate, S1 normal heart sound, S2 normal heart sound and no murmurs Cardio Narrative: afib, rate controlled. GI normal to inspection, nondistended, normoactive bowel sounds, soft to palpation, non-tender and non-distended Extremity normal to inspection and full ROM Extremity Narrative: mild 1+ bilateral pitting edema. Neuro oriented x3, CN's II-XII intact bilaterally, moves all extremities and no focal motor deficits Sensorium / Orientation: awake and alert Motor Exam: strength 5/5 throughout Psych affect normal Results Lab / Micro Data Result Diagrams: 08/30/22 14:20 08/30/22 14:20 Labs: Laboratory Results - last 24 hr 08/30/22 14:20: WBC 7.6, RBC 4.05 L, Hgb 12.6, Hct 37.5, MCV 92.6, MCH 31.1, MCHC 33.6, RDW Std Deviation 49.0 H, RDW Coeff of Chaparro 14.4, Plt Count 288, MPV 9.3, Immature Gran % (Auto) 0.300, Neut % (Auto) 74.8 H, Lymph % (Auto) 15.8 L, [place] % (Auto) 8.1, Eos % (Auto) 0.7, Baso % (Auto) 0.3, Absolute Neuts (auto) 5 .7, Absolute Lymphs (auto) 1.20, Nucleated RBC % 0 08/30/22 14:20: Sodium 137, Potassium 4.3, Chloride 105, Carbon Dioxide 20.0 L, Anion Gap 12, BUN 33 H, Creatinine 1.29 H, Estim Creat Clear Calc 32.61, Est GFR (MDRD) Af Amer 52 L, Est GFR (MDRD) Non-Af 43 L, BUN/Creatinine Ratio 25.6 H, Glucose 160 H, Calcium 9.2, Troponin I High Sens 389 H* 08/30/22 14:20: B-Natriuretic Peptide 752.7 H Micro: Microbiology 08/30/22 14:20 Nasal Secretion SARS-CoV-2 & FLU Antigen (Rapid) - Final Rhythm Strip Rhythm Strip: A-fib Rate: 85 Ectopy: None Radiology Impression Chest X-Ray 08/30/22 14:40 IMPRESSION: No acute findings in the chest and unchanged when compared to 07/15/2022. Electronically Signed: Jean Jane MD at 14:56 EST , Assessment & Plan Assessment/Plan (1) NSTEMI, initial episode of care: (2) Acute heart failure with preserved ejection fraction: PLAN: Plan #Acute on chronic exacerbation of heart failure with preserved EF * admit to PCU * BNP is elevated at 752.7 * initial troponin is 389 * CXR showed no acute cardiopulmonary process * diurese with IV lasix 40mg bid * monitor intake and output * fluid restriction to 1500cc daily * EKG showed afib, with no acute ST changes * 2D echo on 08/12/2022 showed EF of 60%, with moderately enlarged left atrium, and RVSP of 37mmhg. Indeterminate diastolic function * #Nonstemi * initial troponin is 389 * denies chest pain, but does admit to left shoulder pain * had stress test on 08/12/2022 which showed an area of post stress induced myocardial ischemia in the inferior segments * already anticoagulated on eliquis * aspirin 81mg daily. High intensity statin. On plavix also * consult cardiology * cycle troponins * Has been scheduled to have cardiac cath on September 17. Will likely need cardiac cath on Thursday. Will defer to cardiology. * discussed with cardiology; to hold eliquis and start on heparin drip tomorrow * #A. fib: Rate controlled. On atenolol and Eliquis. #Type 2 diabetes mellitus: Diet controlled. Insulin sliding scale. Checks ACH S. Check A1c. # COPD: * Not in exacerbation. Breathing treatments bronchodilators. * Give oxygen as needed and titrate to maintain saturation above 90%. * #CAD s/p stents: * says she has had 5 stents. * On aspirin, high intensity statin and atenolol as well as plavix and imdur * #HypertensioN; on atenolol and lisinopril DVT prophylaxis: eliquis held per cardiology, to start heparin tomorrow. SCDs for today Code status: full code * Patient counseled extensively about different types of CODE STATUS including full code, DNR CCA and DNR CCA. * Patient elects to be full code. Total [id number] time 17 minutes. Charges/Coding Visit Charges Inpatient E&M: 22245 Init Hosp L3 Procedures Hospitalists Procedures: 50608 Advncd Care Plan 30 Min
[2022-08-30] MEDS: Furosemide 40 MG/4 ML Vial IV (17:48)
[2022-08-30] MEDS: 0.9% Saline Lock 10 ML Syringe IV (17:48)
[2022-08-30 18:11] LABS: Bedside Glucose 150 mg/dL (74-106)
--- NOTE | 2022-08-30 18:55 | EKG12_ITS ---
Test Reason : PRE OP Blood Pressure : / mmHG Vent. Rate : 071 BPM Atrial Rate : 000 BPM P-R Int : 000 ms QRS Dur : 102 ms QT Int : 530 ms P-R-T Axes : 000 073 247 degrees QTc Int : [address] & Marked T wave abnormality, consider inferior ischemia ST & Marked T wave abnormality, consider anterolateral ischemia Prolonged QT Abnormal ECG When compared with ECG of 31-AUG-2022 03:57, MANUAL COMPARISON REQUIRED, DATA IS UNCONFIRMED Confirmed by NOHEMY PEARL, JACKELIN ([id number]), makeup editor MARY GALLEGO ([id number]) on 09/04/2022 10:45:17 AM Referred By: Confirmed By:JACKELIN SLATER MD
[2022-08-30] MEDS: Ipratropium/Albuterol Sulfate 3 ML AMPUL.NEB INHALATION (19:02)
[2022-08-30 19:11] LABS: Troponin-I HS 342 pg/mL (3.0-54.0)
[2022-08-30 19:24] LABS: Hemoglobin A1c 6.4 % (3.8-5.6)
[2022-08-30 20:50] LABS: Bedside Glucose 160 mg/dL (74-106)
[2022-08-30 22:03] LABS: Troponin-I HS 324 pg/mL (3.0-54.0)
[2022-08-31] VITALS (8 sets, daily range): BP systolic 101–141; BP diastolic 56–78; PULSE 74–88; RESP 16–18; TEMP 36.4–36.6; O2SAT 92–98
[2022-08-31] MEDS: Ipratropium/Albuterol Sulfate 3 ML AMPUL.NEB INHALATION ×4 (01:09→19:34)
--- NOTE | 2022-08-31 03:47 | EKG12_ITS ---
Test Reason : RHYTHM CHANGE Blood Pressure : / mmHG Vent. Rate : 072 BPM Atrial Rate : 072 BPM P-R Int : 000 ms QRS Dur : 098 ms QT Int : 488 ms P-R-T Axes : 000 036 197 degrees QTc Int : 534 ms Atrial fibrillation Low voltage QRS Cannot rule out Anterior infarct , age undetermined ST & Marked T-wave abnormality, consider inferolateral ischemia Prolonged QT Abnormal ECG When compared with ECG of 30-AUG-2022 18:57, MANUAL COMPARISON REQUIRED, DATA IS UNCONFIRMED Confirmed by NOHEMY PEARL, JACKELIN ([id number]), acquisitions editor MARY GALLEGO ([id number]) on 09/04/2022 10:49:26 AM Referred By: Confirmed By:JACKELIN SLATER MD
--- NOTE | 2022-08-31 04:14 | PCM.HOSP.N ---
Hospitalist Note Patient on telemetry with concern of T wave changes. EKG obtained and notable T wave inversions new from prior. Patient currently chest pain free, no marked dyspnea. Will add ECHO request, asa and mag check. Currently cardiology already consulted. Reviewed with staff and they will also send these EKG changes to Cardiology. Will await Cardiology decision on potential heparin drip start given last dose eliquis 08/30/22 AM per discussion with [facility] staff officer. Unclear exact timeline plan for cardiac catheterization, awaiting Cardiology input following assessment of the EKG.
[2022-08-31 05:47] LABS: International Normalized Ratio 1.1; Prothrombin Time (Protime)PT. 13.9 SECONDS (11.7-14.9)
[2022-08-31 05:48] LABS: Partial Thromboplast Time 29.7 Seconds (24.1-36.2)
[2022-08-31 05:50] LABS: Absolute Lymphocyte Count 1.82 X10^3/uL (0.83-4.51); Basophil# 0.02 X10^3/uL; Basophil% 0.4 % (0-1); Eosinophil# 0.08 X10^3/uL; Eosinophils% 1.4 % (0-5); Hematocrit 38.6 % (37-47); Hemoglobin 12.4 g/dL (12.0-15.0); Lymphocyte # 1.82 X10^3/ul (0.83-4.51); Mean Corp Hgb Conc 32.1 g/dL (32-36); Mean Corpuscular Hgb 30.2 pg (27.0-32.0); Mean Corpuscular Volume 94.1 fL (81-99); Mean Platelet Vol. 9.6 fl (6.2-12.0); Monocyte# 0.54 X10^3/uL; Monocyte% 9.8 % (0-10); NRBC Flagged by Analyzer 0 % (0-5); Neutrophil # 3.04 X10^3/uL (2.7-7.7); Platelet Count 298 K/mm3 (150-450); RBC Distribution Width CV 14.4 % (11.6-14.6); RBC Distribution Width SD 50.1 fl (35.1-43.9); White Blood Count 5.5 K/mm3 (4.4-11.0)
[2022-08-31] MEDS: HEPARIN/D5w 25,000 UNITS 25,000 UNITS/250 ML IV.SOLN. 10 UNITS CONT INF (06:13)
[2022-08-31 06:21] LABS: Anion Gap 9 (5-15); BUN 43 mg/dL (7-18); BUN/Creat Ratio 30.1 RATIO (10-20); Calcium,Total 9.2 mg/dL (8.5-10.1); Chloride 105 mmol/L (98-107); Cholesterol 285 mg/dL (200); Creatinine, Serum 1.43 mg/dL (0.55-1.02); EST Glomerular Filtration Rate 38 mL/min (>60); Est Glom Filt Rate - Afr Amer 46 mL/min (>60); Estimated Creatinine Clearance 29.42 ml/min; Glucose 102 mg/dL (74-106); High Density Lipoprotein 98 mg/dL; Sodium Level 139 mmol/L (136-145); Triglycerides 68 mg/dL; Very Low Density Lipoprotein 14 mg/dL (5-40)
[2022-08-31] MEDS: Isosorbide Mononitrate 30 MG Tablet PO (08:56)
[2022-08-31] MEDS: Atenolol 25 MG Tablet PO (08:56)
[2022-08-31] MEDS: Furosemide 40 MG/4 ML Vial IV ×2 (08:56→16:44)
[2022-08-31] MEDS: Clopidogrel Bisulfate 75 MG Tablet PO (08:56)
[2022-08-31] MEDS: Lisinopril 10 MG Tablet PO (08:57)
[2022-08-31] MEDS: Cholecalciferol (Vit D3) 125 MCG CAPSULE (5,000 UNITS) PO (08:57)
[2022-08-31] MEDS: Aspirin 81 MG TAB.CHEW PO (09:02)
[2022-08-31] MEDS: 0.9% Saline Lock 10 ML Syringe IV ×2 (09:02→16:43)
--- NOTE | 2022-08-31 11:18 | CASEMGMT ---
RN CM NOTE: Pt has traditional MCR and can transfer to any tertiary facility of choice, should transfer be recommended. Edith BSN RN CM
[2022-08-31 11:50] LABS: Bedside Glucose 153 mg/dL (74-106)
[2022-08-31 12:27] LABS: Partial Thromboplast Time 49.4 Seconds (24.1-36.2)
--- NOTE | 2022-08-31 13:01 | PCM.CONS.C ---
Assessment & Plan Assessment/Plan (1) Presence of stent in coronary artery: (2) Paroxysmal atrial fibrillation: (3) Aortocoronary bypass status: (4) NSTEMI, initial episode of care: (5) Acute heart failure with preserved ejection fraction: PLAN: Plan 72-year-old female with extensive cardiac history Patient had multivessel CAD with the CABG x3 done in April 18, 2001 With CUMMINGS to LAD, SVG to OM1, SVG to diagonal In September 14, 2014 she had PCI and stent of the PDA PCI and stent of the distal left circumflex and PCI and stent of the proximal Pharis posterolateral branch. She has history of diabetes mellitus, hypertension paroxysmal A. fib and was on rate control as well on anticoagulation with Eliquis Recently she was evaluated in the office by her primary doctor's assistant Dr. Hamilton with echocardiogram and a nuclear stress test which is abnormal With evidence of mid inferior reversible ischemia with preserved LV function And she was scheduled to undergo cardiac catheterization in September However she presented complaining of symptoms of chest pain shortness of breath and the chest pain was radiating to the left shoulder and she had subsequent elevation of cardiac biomarker with a clinical diagnosis of non-ST elevation NH. Today symptoms improved she does not have any further episode of chest pain and the left shoulder discomfort resolved And in the EKG she does not have any significant ST?the abnormalities. Clinical impression and plan; 1. Patient had non-ST elevation NH also had renal insufficiency with mild elevation of creatinine Will continue current treatment Eliquis has been on hold from yesterday and will continue on heparin the rest of the medication 2. We will plan for cardiac catheterization to assess yurok coronary artery progression of disease as well to assess patency of the stents and the bypass graft. I explained in detail the cardiac care plan to the patient and to the medical team and nursing staff HPI Consult Data Date of Consult: 08/31/22 HPI Narrative HPI Narrative: ANGELLA HARTLEY, is a 72 F who presents [facility] Medical History Abnormal stress test Atherosclerosis of coronary artery bypass graft without angina pectoris Bilateral carotid bruits COPD suggested by initial evaluation Essential hypertension Hyperlipidemia Hypersomnia Hypertension Morbid obesity due to excess calories New onset atrial fibrillation Non-rheumatic tricuspid valve insufficiency Nonrheumatic mitral (valve) insufficiency Presence of stent in coronary artery (~09/14/14) Pure hypercholesterolemia Home Medications albuterol sulfate 90 mcg/actuation aerosol inhaler 1 - 2 puff Q4H PRN PRN Sob &/Or Wheezing 09/10/17 [History Last Taken 08/30/22] Lactobacillus acidophilus (Acidophilus chewable tablet) 1 tab PO DAILY stomach 11/17/18 [History Last Taken 08/30/22] nitroglycerin 0.4 mg sublingual tablet 0.4 mg sublingual Q5M PRN Chest Pain #90 tabs 12/15/19 [Rx Last Taken 08/29/22] cholecalciferol (vitamin D3) 125 mcg (5,000 unit) capsule 125 mcg PO DAILY supplement 06/07/21 [History Last Taken 08/30/22] ipratropium 0.5 mg-albuterol 3 mg (2.5 mg base)/3 mL nebulization soln 3 ml inhalation Q6H SOB 07/10/22 [History Last Taken 08/30/22] apixaban 5 mg tablet 5 mg PO BID blood thinner 08/30/22 [History Last Taken 08/30/22] atenolol 25 mg tablet 25 mg PO DAILY heart rate 08/30/22 [History Last Taken 08/30/22] clopidogrel 75 mg tablet 75 mg PO DAILY antiplatelet 08/30/22 [History Last Taken 08/30/22] isosorbide mononitrate 30 mg tablet,extended release 24 hr 30 mg PO DAILY blood pressure 08/30/22 [History Last Taken 08/30/22] lisinopril 10 mg tablet 10 mg PO DAILY blood pressure 08/30/22 [History Last Taken 08/30/22] Allergy/AdvReac Type Severity Reaction Status Date / Time azithromycin Allergy Hives Verified 08/30/22 13:36 [From Zithromax Z-Dago] ciprofloxacin Allergy Other Verified 08/30/22 13:36 Penicillins [PCN] Allergy Hives Verified 08/30/22 13:36 pineapple [Pineapple] Allergy Hives Verified 08/30/22 13:36 formoterol [From Dulera] AdvReac Severe Sore Verified 08/30/22 13:36 Throat & ear pain mometasone furoate AdvReac Severe Sore Verified 08/30/22 13:36 [From Dulera] Throat & ear pain metoprolol AdvReac Intermediate Does not Verified 08/30/22 13:36 control BP & she gets a headache dicyclomine AdvReac Mild Jittery Verified 08/30/22 13:36 prednisone AdvReac Other Verified 08/30/22 13:36 Family History Father Cancer Mother Hypertension Cancer Sister Breast cancer Brother CAD (coronary artery disease) Cancer Myocardial infarction stents Surgical History Aortocoronary bypass status (~04/18/01) History of section Presence of coronary angioplasty implant and graft (~09/14/14) Social History Smoking Status: Former smoker how long ago did patient quit smokin years ago alcohol intake: never substance use type: does not use caffeine: Yes Type: coffee Number of servings: 2 what type of physical activity do you participate in: walking frequency: daily duration: 60-90 minutes/day seatbelt use: always do you feel safe at home: Yes Physical Exam Cardio Cardio Narrative: This patient seen and examined at bedside in PCU Patient alert orientated x3 and she was able to give a detailed history about her medical and cardiac problems. She is comfortable, resting in bed she does not have any active chest pain Symptoms of left shoulder pain resolved Review of the cardiac rhythm normal sinus Cardiovascular exam S1-S2 is regular No systolic or diastolic murmur Chest exam clear to auscultation bilateral Examination lower extremity +1 lower extremity edema Pedal pulses palpable. Risk Stratification Risk Stratification Applicable: Yes Age >/= 65: Yes >/= 3 CAD Risk Factors (HTN, HLD, DM, family hx of CAD, or current smoker): Yes Aspirin Use in the Past 7 Days: Yes Severe Angina (>/= episodes in 24 hours): Yes EKG ST Changes >/= 0.5mm: No Positive Cardiac Marker: Yes DIEGO Risk Stratification Score: 5 DIEGO % Risk: 25% Risk Objective Data Vital Signs: Vital Signs Temp Pulse Resp BP Pulse Ox O2 Del Method 97.9 F 74 18 141/68 H 98 Room Air 08/31/22 08:14 08/31/22 08:14 08/31/22 08:14 08/31/22 08:14 08/31/22 08:14 08/31/22 08:14 Oxygen Delivery Method Room Air Weight: 203 lb 11.314 oz Body Mass Index (BMI) 36.1 Intake & Output: Intake and Output for Last 24 Hours 08/29/22 08/30/22 08/31/22 23:59 23:59 23:59 Intake Total 705.5 / 705.5 Output Total 2300 / 2300 Balance -1594.5 / -1594.5 Lab / Micro Data Result Diagrams: 08/31/22 05:05 08/31/22 05:05 Labs: Laboratory Results - last 24 hr 08/30/22 14:20: WBC 7.6, RBC 4.05 L, Hgb 12.6, Hct 37.5, MCV 92.6, MCH 31.1, MCHC 33.6, RDW Std Deviation 49.0 H, RDW Coeff of [place] 14.4, Plt Count 288, MPV 9.3, Immature Gran % (Auto) 0.300, Neut % (Auto) 74.8 H, Lymph % (Auto) 15.8 L, [place] % (Auto) 8.1, Eos % (Auto) 0.7, Baso % (Auto) 0.3, Absolute Neuts (auto) 5.7, Absolute Lymphs (auto) 1.20, Nucleated RBC % 0 08/30/22 14:20: Sodium 137, Potassium 4.3, Chloride 105, Carbon Dioxide 20.0 L, Anion Gap 12, BUN 33 H, Creatinine 1.29 H, Estim Creat Clear Calc 32.61, Est GFR (MDRD) Af Amer 52 L, Est GFR (MDRD) Non-Af 43 L, BUN/Creatinine Ratio 25.6 H, Glucose 160 H, Calcium 9.2, Troponin I High Sens 389 H* 08/30/22 14:20: B-Natriuretic Peptide 752.7 H 08/30/22 17:47: POC Glucose 150 H 08/30/22 18:15: Hemoglobin A1c 6.4 H 08/30/22 18:15: Troponin I High Sens 342 H* 08/30/22 20:29: POC Glucose 160 H 08/30/22 20:50: Troponin I High Sens 324 H* 08/30/22 20:50: Magnesium 2.0 08/31/22 05:05: WBC 5.5, RBC 4.10 L, Hgb 12.4, Hct 38.6, MCV 94.1, MCH 30.2, MCHC 32.1, RDW Std Deviation 50.1 H, RDW Coeff of [place] 14.4, Plt Count 298, MPV 9.6, Immature Gran % (Auto) 0.400, Neut % (Auto) 55.0, Lymph % (Auto) 33.0, [place] % (Auto) 9.8, Eos % (Auto) 1.4, Baso % (Auto) 0.4, Absolute Neuts (auto) 3.0, Absolute Lymphs (auto) 1.82, Nucleated RBC % 0 08/31/22 05:05: Sodium 139, Potassium 4.0, Chloride 105, Carbon Dioxide 25.0, Anion Gap 9, BUN 43 H, Creatinine 1.43 H, Estim Creat Clear Calc 29.42, Est GFR (MDRD) Af Amer 46 L, Est GFR (MDRD) Non-Af 38 L, BUN/Creatinine Ratio 30.1 H, Glucose 102, Calcium 9.2, Triglycerides 68, Cholesterol 285 H, LDL Cholesterol 173 H, VLDL Cholesterol 14, HDL Cholesterol 98 08/31/22 05:20: PT 13.9, INR 1.1, APTT 29.7 08/31/22 11:27: POC Glucose 153 H 08/31/22 12:00: APTT 49.4 H Micro: Microbiology 08/30/22 14:20 Nasal Secretion SARS-CoV-2 & FLU Antigen (Rapid) - Final Rhythm Strip Rhythm Strip: A-fib Rate: 85 Ectopy: None Cardiology Labs/Tests 08/30/22 14:20: WBC 7.6, RBC 4.05 L, Hgb 12.6, Hct 37.5, MCV 92.6, MCH 31.1, MCHC 33.6, Plt Count 288, MPV 9.3, Immature Gran % (Auto) 0.300, Neut % (Auto) 74.8 H, Lymph % (Auto) 15.8 L, [place] % (Auto) 8.1, Eos % (Auto) 0.7, Baso % (Auto) 0.3, Absolute Neuts (auto) 5.7, Nucleated RBC % 0 08/30/22 14:20: Sodium 137, Potassium 4.3, Chloride 105, Carbon Dioxide 20.0 L, Anion Gap 12, BUN 33 H, Creatinine 1.29 H, Est GFR (MDRD) Af Amer 52 L, Est GFR (MDRD) Non-Af 43 L, BUN/Creatinine Ratio 25.6 H, Glucose 160 H, Calcium 9.2 08/30/22 14:20: B-Natriuretic Peptide 752.7 H 08/30/22 18:15: Hemoglobin A1c 6.4 H 08/30/22 20:50: Magnesium 2.0 08/31/22 05:05: WBC 5.5, RBC 4.10 L, Hgb 12.4, Hct 38.6, MCV 94.1, MCH 30.2, MCHC 32.1, Plt Count 298, MPV 9.6, Immature Gran % (Auto) 0.400, Neut % (Auto) 55.0, Lymph % (Auto) 33.0, [place] % (Auto) 9.8, Eos % (Auto) 1.4, Baso % (Auto) 0.4, Absolute Neuts (auto) 3.0, Nucleated RBC % 0 08/31/22 05:05: Sodium 139, Potassium 4.0, Chloride 105, Carbon Dioxide 25.0, Anion Gap 9, BUN 43 H, Creatinine 1.43 H, Est GFR (MDRD) Af Amer 46 L, Est GFR (MDRD) Non-Af 38 L, BUN/Creatinine Ratio 30.1 H, Glucose 102, Calcium 9.2, Triglycerides 68, Cholesterol 285 H, LDL Cholesterol 173 H, VLDL Cholesterol 14, HDL Cholesterol 98 08/31/22 05:20: PT 13.9, INR 1.1, APTT 29.7 08/31/22 12:00: APTT 49.4 H Rhythm: Prior cardiac rhythm strip showed evidence of atrial fibrillation with controlled ventricular rate EKG: Underlying normal sinus rhythm no significant ST?the abnormalities ECHO: Preserved LV systolic function with mild MR, mild TR Stress Test: Recent stress test in the office is abnormal LV function preserved Mid inferior reversible hypokinesia : Radiography Diagnostic Testing: Radiology Impression Chest X-Ray 08/30/22 14:40 IMPRESSION: No acute findings in the chest and unchanged when compared to 07/15/2022. Electronically Signed: Jean Jane MD at 14:56 EST ,
--- NOTE | 2022-08-31 16:22 | PN.HOSP_ITS ---
Subjective Subjective Patient was seen and examined today, she does not complain of any chest pain to this examiner, she has no shortness of breath today. Patient is currently on room air Objective Data Objective Data Vital Signs: Vital Signs Temp Pulse Resp BP Pulse Ox O2 Del Method 97.8 F 79 17 118/64 92 Room Air 08/31/22 14:00 08/31/22 14:43 08/31/22 14:43 08/31/22 14:00 08/31/22 14:00 08/31/22 14:00 Oxygen Delivery Method Room Air Weight: 92.4 kg Body Mass Index (BMI) 36.1 Intake & Output: Intake and Output for Last 24 Hours 08/29/22 08/30/22 08/31/22 23:59 23:59 23:59 Intake Total 705.5 / 705.5 Output Total 2300 / 2300 Balance -1594.5 / -1594.5 Lab / Micro Data Result Diagrams: 08/31/22 05:05 08/31/22 05:05 Labs: Laboratory Results - last 24 hr 08/30/22 17:47: POC Glucose 150 H 08/30/22 18:15: Hemoglobin A1c 6.4 H 08/30/22 18:15: Troponin I High Sens 342 H* 08/30/22 20:29: POC Glucose 160 H 08/30/22 20:50: Troponin I High Sens 324 H* 08/30/22 20:50: Magnesium 2.0 08/31/22 05:05: WBC 5.5, RBC 4.10 L, Hgb 12.4, Hct 38.6, MCV 94.1, MCH 30.2, MCHC 32.1, RDW Std Deviation 50.1 H, RDW Coeff of [place] 14.4, Plt Count 298, MPV 9.6, Immature Gran % (Auto) 0.400, Neut % (Auto) 55.0, Lymph % (Auto) 33.0, [place] % (Auto) 9.8, Eos % (Auto) 1.4, Baso % (Auto) 0.4, Absolute Neuts (auto) 3.0, Absolute Lymphs (auto) 1.82, Nucleated RBC % 0 08/31/22 05:05: Sodium 139, Potassium 4.0, Chloride 105, Carbon Dioxide 25.0, Anion Gap 9, BUN 43 H, Creatinine 1.43 H, Estim Creat Clear Calc 29.42, Est GFR (MDRD) Af Amer 46 L, Est GFR (MDRD) Non-Af 38 L, BUN/Creatinine Ratio 30.1 H, Glucose 102, Calcium 9.2, Triglycerides 68, Cholesterol 285 H, LDL Cholesterol 173 H, VLDL Cholesterol 14, HDL Cholesterol 98 08/31/22 05:20: PT 13.9, INR 1.1, APTT 29.7 08/31/22 11:27: POC Glucose 153 H 08/31/22 12:00: APTT 49.4 H Micro: Microbiology 08/30/22 14:20 Nasal Secretion SARS-CoV-2 & FLU Antigen (Rapid) - Final Rhythm Strip Rhythm Strip: A-fib Rate: 85 Ectopy: None Physical Exam Const alert, oriented x3, no apparent distress and healthy appearing General Appearance: cooperative, well kempt and well developed Orientation / Consciousness: awake, oriented to person, oriented to place and oriented to time HEENT normocephalic, head/scalp atraumatic and moist oral mucous membranes Eyes PERRL, EOMs intact bilaterally and conjunctivae normal Neck supple, no JVD, thyroid normal and no carotid bruits General: trachea midline Resp normal respiratory effort, no retractions, no use of accessory muscles and clear to auscultation bilaterally Auscultation: Negative for rales, rhonchi or wheezes Cardio S1 normal heart sound, S2 normal heart sound, no murmurs, no rub and no gallops Cardio Narrative: Heart rate and rhythm is irregular GI normal to inspection, nondistended, normoactive bowel sounds, soft to palpation, non-tender and non-distended Extremity no clubbing, cyanosis or edema Skin no rashes or lesions noted General Skin Exam: no breakdown Neuro oriented x3, CN's II-XII intact bilaterally, moves all extremities, no focal motor deficits and no sensory deficits noted Sensorium / Orientation: awake, alert, oriented to person, oriented to place and oriented to time Speech: speech normal Psych affect normal Assessment & Plan Assessment/Plan (1) Acute heart failure with preserved ejection fraction: PLAN: Plan 1. [id number] will remain on her present medications, she has been seen by cardiology, she will undergo cardiac catheterization tomorrow #2 acute congestive heart failure with preserved ejection fraction-patient will remain on IV diuretics, she is not hypoxic #3 coronary artery disease-complicates care, medical course, recovery, and prognosis, she is to remain on her present medications with any adjustments from cardiology #4 chronic atrial fibrillation-patient is on rate control medications and anticoagulants #5 hypercoagulable state secondary to atrial fibrillation-patient is anticoagulated presently #6 essential hypertension-patient will remain on her present medications #7 COPD-complicates care, medical course, recovery, and prognosis Total clinical time spent by myself addressing the patient's medical issues, reviewing all of the data, and collaborating with the patient's care team:38 minutes Charges/Coding Visit Charges Inpatient E&M: 76399 Subs Hosp L2
--- NOTE | 2022-08-31 18:29 | PCM.CONS.R ---
Assessment & Plan Assessment/Plan (1) ILANA (acute kidney injury): (2) Chronic kidney disease, stage 3b: (3) Essential hypertension: (4) CAD (coronary artery disease): PLAN: Plan Impression/Plan: The patient is a 72-year-old woman with past history of CAD status post PCI in September 2014, diet-controlled type 2 diabetes mellitus, hypertension, COPD, atrial fibrillation on apixaban, and hyperlipidemia. The patient was admitted to the hospital on 08/30/2022 with NSTEMI. Nephrology is asked to see the patient because of ILANA on CKD. Acute kidney injury on chronic kidney disease stage IIIb. Baseline serum creatinine has been around 1.1 to 1.2 mg/dL. The patient presented to the hospital with serum creatinine 1.29 mg/dL which has increased to 1.43 mg/dL today. I will check urinalysis and urine indices. We will also check urine protein to creatinine ratio. Since CKD has not been worked up before in the past, I will check renal ultrasound to assess kidney size as well. The patient is okay from nephrology standpoint to proceed with left heart catheterization/coronary angiogram. The patient does not appear to be volume overloaded on exam. Chest x-ray done earlier today did not show any pulmonary edema or pleural effusion. Therefore, I will stop furosemide for now. Will also stop lisinopril until after left heart catheterization. We will give her gentle hydration to minimize risk of contrast associated nephropathy. Contrast load should be minimized as much as possible. Hypertension. The patient had been on lisinopril and atenolol prior to admission. BP is not been terribly high since admission. Would hold lisinopril for now and monitor BP on atenolol only especially since she will be exposed to IV contrast tomorrow. DARREL inhibitor can be restarted after IV contrast exposure if there is no ILANA. NSTEMI. The patient had prior history of CABG and PCI. The patient is scheduled [facility]. The patient is okay from nephrology standpoint to proceed with coronary angiogram with precautions as discussed above. Nephrology plan is discussed with Dr. Cunningham. HPI Consult Data Date of Consult: 08/31/22 HPI Narrative HPI Narrative: The patient is a 72-year-old woman with past history of CAD status post PCI in September 2014, hypertension, COPD, atrial fibrillation on apixaban, and hyperlipidemia. The patient presented to the hospital on 08/22/2022 with dyspnea. She was diagnosed with heart failure with preserved ejection fraction and NSTEMI and is scheduled for [facility] tomorrow. Nephrology is asked to see the patient because of ILANA. Her serum creatinine has increased to 1.43 mg/dL today. Serum creatinine has been around 1.1 to 1.2 mg/dL at baseline. Serum creatinine was 1.29 mg/dL on presentation on 08/30/2022 2:20 PM. [facility], LAT[facility] Medical History Abnormal stress test Atherosclerosis of coronary artery bypass graft without angina pectoris Bilateral carotid bruits COPD suggested by initial evaluation Essential hypertension Hyperlipidemia Hypersomnia Hypertension Morbid obesity due to excess calories New onset atrial fibrillation Non-rheumatic tricuspid valve insufficiency Nonrheumatic mitral (valve) insufficiency Presence of stent in coronary artery (~09/14/14) Pure hypercholesterolemia Home Medications albuterol sulfate 90 mcg/actuation aerosol inhaler 1 - 2 puff Q4H PRN PRN Sob &/Or Wheezing 09/10/17 [History Last Taken 08/30/22] Lactobacillus acidophilus (Acidophilus chewable tablet) 1 tab PO DAILY stomach 11/17/18 [History Last Taken 08/30/22] nitroglycerin 0.4 mg sublingual tablet 0.4 mg sublingual Q5M PRN Chest Pain #90 tabs 12/15/19 [Rx Last Taken 08/29/22] cholecalciferol (vitamin D3) 125 mcg (5,000 unit) capsule 125 mcg PO DAILY supplement 06/07/21 [History Last Taken 08/30/22] ipratropium 0.5 mg-albuterol 3 mg (2.5 mg base)/3 mL nebulization soln 3 ml inhalation Q6H SOB 07/10/22 [History Last Taken 08/30/22] apixaban 5 mg tablet 5 mg PO BID blood thinner 08/30/22 [History Last Taken 08/30/22] atenolol 25 mg tablet 25 mg PO DAILY heart rate 08/30/22 [History Last Taken 08/30/22] clopidogrel 75 mg tablet 75 mg PO DAILY antiplatelet 08/30/22 [History Last Taken 08/30/22] isosorbide mononitrate 30 mg tablet,extended release 24 hr 30 mg PO DAILY blood pressure 08/30/22 [History Last Taken 08/30/22] lisinopril 10 mg tablet 10 mg PO DAILY blood pressure 08/30/22 [History Last Taken 08/30/22] Allergy/AdvReac Type Severity Reaction Status Date / Time azithromycin Allergy Hives Verified 08/30/22 13:36 [From Zithromax Z-Dago] ciprofloxacin Allergy Other Verified 08/30/22 13:36 Penicillins [PCN] Allergy Hives Verified 08/30/22 13:36 pineapple [Pineapple] Allergy Hives Verified 08/30/22 13:36 formoterol [From Dulera] AdvReac Severe Sore Verified 08/30/22 13:36 Throat & ear pain mometasone furoate AdvReac Severe Sore Verified 08/30/22 13:36 [From Dulera] Throat & ear pain metoprolol AdvReac Intermediate Does not Verified 08/30/22 13:36 control BP & she gets a headache dicyclomine AdvReac Mild Jittery Verified 08/30/22 13:36 prednisone AdvReac Other Verified 08/30/22 13:36 Family History Father Cancer Mother Hypertension Cancer Sister Breast cancer Brother CAD (coronary artery disease) Cancer Myocardial infarction stents Surgical History Aortocoronary bypass status (~04/18/01) History of section Presence of coronary angioplasty implant and graft (~09/14/14) Social History Smoking Status: Former smoker how long ago did patient quit smokin years ago alcohol intake: never substance use type: does not use caffeine: Yes Type: coffee Number of servings: 2 what type of physical activity do you participate in: walking frequency: daily duration: 60-90 minutes/day seatbelt use: always do you feel safe at home: Yes ROS ROS Narrative 05/12 ROS was done and is otherwise noncontributory to what is already documented in HPI. Physical Exam Narrative General: Alert and oriented x3, no apparent distress. HEENT: Normocephalic, atraumatic, PERRLA, EOMI, hearing is intact, mucous membrane moist without erythema. Neck: Supple, no JVD, trachea is midline. Heart: Normal S1, S2, no gallops, murmurs or rubs. Lungs: Clear to auscultation bilaterally. Abdomen: Normal bowel sound, soft, nontender, no guarding or rebound. Extremities: No clubbing, cyanosis, or edema. Musculoskeletal: Full passive range of motion, no joint swelling. Neurologic: Cranial nerves II to XII are grossly intact. There is no focal neurologic deficit. Skin: Warm and dry without rash. Psychiatric: Normal mood and affect. Lab / Micro Data Result Diagrams: 08/31/22 05:05 08/31/22 05:05 Labs: Laboratory Results - last 24 hr 08/30/22 18:15: Hemoglobin A1c 6.4 H 08/30/22 18:15: Troponin I High Sens 342 H* 08/30/22 20:29: POC Glucose 160 H 08/30/22 20:50: Troponin I High Sens 324 H* 08/30/22 20:50: Magnesium 2.0 08/31/22 05:05: WBC 5.5, RBC 4.10 L, Hgb 12.4, Hct 38.6, MCV 94.1, MCH 30.2, MCHC 32.1, RDW Std Deviation 50.1 H, RDW Coeff of [place] 14.4, Plt Count 298, MPV 9.6, Immature Gran % (Auto) 0.400, Neut % (Auto) 55.0, Lymph % (Auto) 33.0, [place] % (Auto) 9.8, Eos % (Auto) 1.4, Baso % (Auto) 0.4, Absolute Neuts (auto) 3.0, Absolute Lymphs (auto) 1.82, Nucleated RBC % 0 08/31/22 05:05: Sodium 139, Potassium 4.0, Chloride 105, Carbon Dioxide 25.0, Anion Gap 9, BUN 43 H, Creatinine 1.43 H, Estim Creat Clear Calc 29.42, Est GFR (MDRD) Af Amer 46 L, Est GFR (MDRD) Non-Af 38 L, BUN/Creatinine Ratio 30.1 H, Glucose 102, Calcium 9.2, Triglycerides 68, Cholesterol 285 H, LDL Cholesterol 173 H, VLDL Cholesterol 14, HDL Cholesterol 98 08/31/22 05:20: PT 13.9, INR 1.1, APTT 29.7 08/31/22 11:27: POC Glucose 153 H 08/31/22 12:00: APTT 49.4 H Micro: Microbiology 08/30/22 14:20 Nasal Secretion SARS-CoV-2 & FLU Antigen (Rapid) - Final Rhythm Strip Rhythm Strip: A-fib Rate: 85 Ectopy: None
[2022-08-31 18:58] LABS: Partial Thromboplast Time 59.3 Seconds (24.1-36.2)
[2022-08-31 19:54] LABS: Mucous, Urine 0 SEEN /hpf (<or=2+); Red Blood Cells-Urine 0 SEEN /hpf (0-5)
[2022-08-31 20:00] LABS: Color, Urine Yellow (Yellow); Glucose, Dipstick Normal (Normal); Ketone-Dipstick Negative (Negative); Leukocyte Esterase-Dipstick 500 /ul (Negative); Nitrite-Dipstick Negative (Negative); Occult Blood-Urine 10 /ul (Negative); Protein-Dipstick Negative (Negative); Specific Gravity, Urine 1.015 (1.002-1.030); Urine Bilirubin Dipstick Negative (Negative); Urine Clarity Clear (Clear); Urine Urobilinogen Normal (Normal)
[2022-08-31 20:13] LABS: Urea Nitrogen, Urine 222 mg/dL (NO RANGE EST.)
[2022-08-31 20:16] LABS: White Blood Cells 10-25 SEEN /hpf (0-5)
[2022-08-31 20:17] LABS: Bacteria 2+ /hpf (None Seen); Squamous Epithelial Cells - UA 10-25 SEEN /hpf (5-10)
[2022-08-31 20:28] LABS: Sodium Level 140 mmol/L (136-145)
[2022-08-31] MEDS: 0.9% Normal Saline 1,000 ML 75 ML IV (20:33)
[2022-09-01] VITALS (17 sets, daily range): BP systolic 118–152; BP diastolic 47–79; PULSE 58–89; RESP 15–18; TEMP 36.2–36.4; O2SAT 95–98
[2022-09-01 00:34] LABS: Partial Thromboplast Time 91.9 Seconds (24.1-36.2)
[2022-09-01] MEDS: HEPARIN/D5w 25,000 UNITS 25,000 UNITS/250 ML IV.SOLN. 10 UNITS CONT INF (03:30)
[2022-09-01 04:21] LABS: Bedside Glucose 183 mg/dL (74-106)
--- NOTE | 2022-09-01 05:00 | EKG12_ITS ---
Test Reason : Blood Pressure : / mmHG Vent. Rate : 057 BPM Atrial Rate : 000 BPM P-R Int : 000 ms QRS Dur : 104 ms QT Int : 558 ms P-R-T Axes : 000 043 215 degrees QTc Int : 543 ms Atrial fibrillation with slow ventricular response ST & Marked T wave abnormality, consider inferior ischemia ST & Marked T wave abnormality, consider anterolateral ischemia Prolonged QT Abnormal ECG When compared with ECG of 01-SEP-2022 05:17, MANUAL COMPARISON REQUIRED, DATA IS UNCONFIRMED Confirmed by PITER PEARL, MARIA A ([id number]), supervising editor trailer MARY GALLEGO ([id number]) on 09/05/2022 9:07:23 AM Referred By: NOHEMY Confirmed By:CANDELARIA DUMAS MD
[2022-09-01] MEDS: Aspirin 81 MG TAB.CHEW PO (05:58)
[2022-09-01] MEDS: 0.9% Normal Saline 1,000 ML 75 ML IV (05:58)
[2022-09-01] MEDS: Clopidogrel Bisulfate 75 MG Tablet PO (05:58)
[2022-09-01] MEDS: Isosorbide Mononitrate 30 MG Tablet PO (05:58)
[2022-09-01] MEDS: Atenolol 25 MG Tablet PO (05:58)
--- NOTE | 2022-09-01 07:00 | US_ITS ---
EXAM: US RETROPERITONEAL LIMITED, RENAL CLINICAL INDICATION: CKD TECHNIQUE: Limited grayscale and color Doppler sonographic evaluation of the retroperitoneum was performed. This report was created using [employer] report [employer] technology. COMPARISON: None. FINDINGS: RIGHT KIDNEY: Right renal cyst at the upper pole measuring 5.8 x 5.6 x 6.9 cm. Left renal cyst at the upper pole measuring up to 1.3 cm. These are both simple. No hydronephrosis. No shadowing calculus. No perinephric collection is demonstrated. Normal renal echogenicity bilaterally. Normal renal sizes bilaterally. No solid renal masses. No other renal abnormalities. LEFT KIDNEY: See above. BLADDER: Mild debris within the bladder. Bladder shows no wall thickening. No other intraluminal abnormalities. US/Kidney and Bladder IMPRESSION: 1. Benign renal cysts. 2. No other significant abnormalities. Electronically Signed: Eugene Maciel MD at 21:15 EST ,
[2022-09-01] MEDS: Ipratropium/Albuterol Sulfate 3 ML AMPUL.NEB INHALATION ×3 (07:05→19:15)
[2022-09-01 07:22] LABS: Partial Thromboplast Time 78.3 Seconds (24.1-36.2)
--- NOTE | 2022-09-01 07:57 | NURSING ---
Attempted to call report to labor law professor, labor law professor states pt is third on list and will call for report when they are ready.
--- NOTE | 2022-09-01 10:08 | PN.CARD_ITS ---
Subjective Subjective Patient seen and evaluated and underwent cardiac catheterization Objective Data Vital Signs: Vital Signs Temp Pulse Resp BP Pulse Ox O2 Del Method 97.5 F L 79 16 133/67 H 98 Room Air 09/01/22 05:54 09/01/22 07:05 09/01/22 07:05 09/01/22 05:54 09/01/22 07:05 09/01/22 07:05 Oxygen Delivery Method Room Air Weight: 203 lb 11.314 oz Body Mass Index (BMI) 36.1 Intake & Output: Intake and Output for Last 24 Hours 08/30/22 08/31/22 09/01/22 23:59 23:59 23:59 Intake Total 855.5 / 855.5 903.97 / 903.97 Output Total 3700 / 3700 600 / 600 Balance -2844.5 / -2844.5 303.97 / 303.97 Lab / Micro Data Result Diagrams: 08/31/22 05:05 08/31/22 20:12 Labs: Laboratory Results - last 24 hr 08/31/22 11:27: POC Glucose 153 H 08/31/22 12:00: APTT 49.4 H 08/31/22 14:35: Urine Color Yellow, Urine Clarity Clear, Urine pH 6.0, Ur Specific [place] 1.015, Urine Protein Negative, Urine Glucose (UA) Normal, Urine Ketones Negative, Urine Occult Blood 10 H, Urine Nitrite Negative, Urine Bilirubin Negative, Urine Urobilinogen Normal, Ur Leukocyte Esterase 500 H, Urine RBC 0 SEEN, Urine WBC 10-25 SEEN, Ur Squamous Epith Cells 10-25 SEEN, Urine Bacteria 2+, Urine Mucus 0 SEEN 08/31/22 14:35: U Random Total Protein 6.0, Urine Creatinine 23.90 08/31/22 14:35: Urine Urea Nitrogen 222 08/31/22 18:30: APTT 59.3 H 08/31/22 20:12: Sodium 140 08/31/22 20:30: POC Glucose 183 H 09/01/22 00:10: APTT 91.9 H* 09/01/22 07:00: APTT 78.3 H Rhythm Strip Rhythm Strip: A-fib Rate: 85 Ectopy: None Cardiology Labs/Tests 08/31/22 12:00: APTT 49.4 H 08/31/22 14:35: Urine Color Yellow, Urine Clarity Clear, Urine pH 6.0, Ur Specific [place] 1.015, Urine Protein Negative, Urine Glucose (UA) Normal, Urine Ketones Negative, Urine Occult Blood 10 H, Urine Nitrite Negative, Urine Bilirubin Negative, Urine Urobilinogen Normal, Ur Leukocyte Esterase 500 H, Urine RBC 0 SEEN, Urine WBC 10-25 SEEN 08/31/22 18:30: APTT 59.3 H 08/31/22 20:12: Sodium 140 09/01/22 00:10: APTT 91.9 H* 09/01/22 07:00: APTT 78.3 H Rhythm: EKG: ECHO: Stress Test: Cardiac Cath: PCI: CT Surgery: Holter monitor: EPS: PPM: CXR: Chest CT Scan: Physical Exam Const alert, oriented x3 and no apparent distress General Appearance: cooperative HEENT hearing grossly normal bilaterally Head and Scalp: atraumatic Eyes EOMs intact bilaterally Neck General: normal visual inspection Chest inspection of chest normal and palpation of chest normal Resp normal respiratory effort Auscultation: clear to auscultation bilaterally Cardio regular rate, regular rhythm, S1 normal heart sound and S2 normal heart sound Jugular Venous Distention: JVD GI normal to inspection, nondistended, normoactive bowel sounds Extremity normal capillary refill and no pedal edema Peripheral Pulses: Yes pulses 2+ throughout and femoral pulses present Skin no rashes or lesions noted Neuro oriented x3 and CN's II-XII intact bilaterally Psych Appearance: grossly normal and appropriate Assessment & Plan Assessment/Plan (1) NSTEMI, initial episode of care: PLAN: Patient has an elevated troponin level with a non-ST elevation myocardial infarction. The above is likely secondary to coronary artery disease and plaque rupture. * Patient underwent a cardiac catheterization which demonstrated the following * Left main coronary artery with distal 30% stenosis * Left anterior descending artery which is totally occluded * Proximal left circumflex artery with 60% stenosis and a dominant circumflex artery * Saphenous vein graft to the obtuse marginal branch which is patent * Saphenous vein graft to the diagonal vessel not apparent yet * Left internal mammary artery to left anterior descending artery which is patent * Nondominant right coronary artery with 80% proximal stenosis * Distal circumflex artery with 80% in-stent stenosis noted in the posterior lateral vessel * Previously placed stent in the distal posterior descending coronary artery from the circumflex artery which is patent * * Based on the above angiographic findings the patient will be referred for PCI of the posterolateral vessel (2) CAD (coronary artery disease): PLAN: Patient has known coronary artery disease and is status post coronary bypass surgery as noted above. * Treatment would be as suggested (3) Presence of stent in coronary artery: PLAN: Patient has evidence of a previous in-stent stenosis of the circumflex artery which is dominant. She will undergo PCI of the above. Plan to be to continue aspirin and clopidogrel (4) Essential hypertension: PLAN: Patient has a history of hypertension her blood pressure is under good control continue current medical therapy (5) Pure hypercholesterolemia: PLAN: Will recommend aggressive lipid-lowering therapy. (6) Aortocoronary bypass status: PLAN: Status post coronary bypass surgery as noted above. (7) Atrial fibrillation: PLAN: Patient has a history of atrial fibrillation with a controlled ventricular response rate. We will continue anticoagulation and then resume beta-billie. Thank you for allowing me to participate in the care of your patient. Please don't hesitate to call if any issues arise.
--- NOTE | 2022-09-01 10:28 | CL.D_ITS ---
Patient Name: ANGELLA HARTLEY Study Date: 09/01/2022 Performing: Hebert Styles MD Ht: 63 inches 160.02 cm : 1950 Wt: 203.71 lbs 92.4 kg Age: 72 Gender: female BSA: 1.95 PROCEDURE(S) PERFORMED [id number])LHC/COR/CABG CLINICAL PROFILE AND INDICATIONS Indications: Suspected CAD Heart Failure: None Stress/Imaging Date: 08/17/22Stress Test with SPECT MPI: Positive Intermediate Risk CAD Presentations: Non-STEMI. Symptom onset Date/Time: 09/01/22 Time Not Available CONCLUSIONS Coronary disease status post coronary bypass surgery with the ak chin circumflex artery which is dominant previously stented in the posterolateral vessel with high-grade in-stent stenosis in the area of the ischemia noted on the stress test. CUMMINGS to the LAD is patent saphenous vein graft to the obtuse marginal branch is patent RECOMMENDATIONS Referred for immediate PCI DESCRIPTION OF PROCEDURE The patient arrived to the procedure lab. The risks and benefits of the procedure as well as a full description of our services here and current unavailability of surgical backup were fully explained to the patient and/or their significant other prior to the catheterization. The Timeout was completed, verifying the correct patient and procedure. The patient's procedural site was prepped and draped in the usual fashion. Local anesthetic was given subcutaneously to left radial region with Lidocaine 2%. Using a modified Seldinger technique, arterial access was obtained via the left femoral artery, a 6Fr sheath was inserted. Left internal mammary artery graft to the LAD selective angiography was performed in multiple views using a 5 Fr. IM catheter. Saphenous Vein graft to the OM 1 selective angiography was performed in multiple views using a 5 Fr. JL4 catheter. Left Coronary Artery selective angiography was performed in multiple views using a 5 Fr. JL4 catheter. Right Coronary Artery selective angiography was then performed in multiple views using a 5 Fr. 3DRC (Geovanni) catheter. CORONARY ANGIOGRAPHY DOMINANCE: Left Dominant LEFT HEART ASSESSMENT Left Ventricular Ejection Fraction: by Echo 60 % Normal LV wall motion Normal Left Ventricular systolic function LEFT MAIN: 30% distal LEFT ANTERIOR DESCENDING ARTERY: PROX LAD: is occluded CIRCUMFLEX ARTERY: Proximal 60% stenosis. The vessel then continues and gives of a dominant posterior lateral vessel which had been previously stented with 80% long in-stent stenosis and then continues with a posterior descending artery also previously stented with minimal in-stent stenosis. RIGHT CORONARY ARTERY: Nondominant with 80% mid segment stenosis GRAFTS: CUMMINGS graft to the Mid LAD is patent Saphenous Vein graft to the 2nd OM is patent Saphenous Vein graft to the 1st Diagonal is totally occluded COMPLICATIONS PROCEDURE MEDICATIONS Versed 1 mg IV Fentanyl 50 mcg IV Versed 1 mg IV Versed 1 mg IV Oxygen: 2 L/min via nasal cannula Heparin given IA 09/01/2022 09:48:15 Heparin 5000 unit(s) IV 09/01/2022 10:10:17 Verapamil 2.5mg, Ntg 100mcgs, 3000 units of Heparin given IA 09/01/2022 09:48:15 SUMMARY OF HEMODYNAMIC DATA Time AIR REST ECG 09:16:26 AO 126/65 (87) SA 09:49:32 Signed By Hebert Styles MD On 09/01/2022 10:27:38 Hebert Styles MD
--- NOTE | 2022-09-01 11:15 | EKG12_ITS ---
Test Reason : CP ADMIT Blood Pressure : / mmHG Vent. Rate : 075 BPM Atrial Rate : 000 BPM P-R Int : 000 ms QRS Dur : 086 ms QT Int : 440 ms P-R-T Axes : 000 042 189 degrees QTc Int : 491 ms Atrial fibrillation Anteroseptal infarct , age undetermined T wave abnormality, consider inferolateral ischemia Abnormal ECG When compared with ECG of 30-AUG-2022 14:25, MANUAL COMPARISON REQUIRED, DATA IS UNCONFIRMED Confirmed by NOHEMY PEARL, JACKELIN ([id number]), magazine editor MARY GALLEGO ([id number]) on 09/04/2022 10:49:53 AM Referred By: Confirmed By:JACKELIN SLATER MD
[2022-09-01] MEDS: Cholecalciferol (Vit D3) 125 MCG CAPSULE (5,000 UNITS) PO (12:03)
--- NOTE | 2022-09-01 12:35 | CASEMGMT ---
RN?CM?BOBBIN PRESSER?CM?to room to meet with patient for initial transition planning/care coordination?assessment.?RN?CM?introduced self and role at [facility].? Pt voices understanding and consents to?assessment?at this time.? Pt resting in bed in no distress at this time.? Pt is A/O at this time and answers all questions appropriately.?? Care providers, pharmacy, and demographics verified/updated at this time. PCP: Dr Daley Specialists:Dr Hamilton-cardiology, Dr Lang-pulmonology Preferred Pharmacy: [facility] Insurance:[facility] A/B Prescription Benefit:?yes Living Will/HPOA:?Pt does not currently have LW/HCPOA and interested in completing both. She would like her dtr, Shirley, to be POA and does not want her other 2 children to be listed as alternative agents. Manisha BRADSHAW, made aware. LNOK: Daughter, Shirley Parks. Pt has 2 other children. Living Arrangements: Lives w/her dtrShirley, in [address] suite. It is one-level w/one step to enter. Pt states she is independent w/ADL's and IADL's and manages her own medications. Transportation:?Pt states drives self and states no transportation concerns at this time.? DME: States has the following DME:?functioning glucometer w/supplies. She states she is getting low on strips, but purchased the glucometer OTC and plans to go to the drug store where she purchased the glucometer to buy more strips. She has a nebulizer and is in the process of ordering a pulse ox. Pt states no need for further DME at this time.? HHC/SNF: No hx of SNF. Had HHC in 2000. Denies need for HHC and no needs identified. Pt wishes to return home and states has no concerns with going home at time of discharge.?CM?to follow for any further discharge planning/needs.? Pt voices no further concerns/needs at this time.? Advised pt to ask for?CM?if any further questions/concerns/needs arise.? Voices understanding. PLAN:??Home SW to see for AD Edith BSN?RN?CM
[2022-09-01 12:50] LABS: Bedside Glucose 117 mg/dL (74-106)
--- NOTE | 2022-09-01 13:41 | CL.I_ITS ---
Patient Name: ANGELLA HARTLEY Study Date: 09/01/2022 Performing: Mary Medrano MD Ht: 63 inches 160.02 cm : 1950 Wt: 203.71 lbs 92.4 kg Age: 72 Gender: female BSA: 1.95 PROCEDURE(S) PERFORMED [id number])PTCA, SINGLE CORONARY ARTERY [id number])AO ROOT ANGIO WITH HEART CATH CLINICAL PROFILE AND CO-MORBIDITIES Indications: Suspected CAD Heart Failure: None Stress/Imaging Date: 08/17/22 Stress Test with SPECT MPI: Positive Intermediate Risk CAD Presentations: Non-STEMI. Symptom onset Date/Time: 09/01/22 Time Not Available CONCLUSIONS Successful PTCA of ISR of OM2 RECOMMENDATIONS DESCRIPTION OF PROCEDURE The patient arrived to the procedure lab. The risks and benefits of the procedure as well as a full description of our services here and current unavailability of surgical backup were fully explained to the patient and/or their significant other prior to the catheterization. The Timeout was completed, verifying the correct patient and procedure. The patient's procedural site was prepped and draped in the usual fashion. Local anesthetic was given subcutaneously to left radial region with Lidocaine 2% Using a modified Seldinger technique,arterial access was obtained via the left femoral artery, a 6Fr sheath was inserted. Left internal mammary artery graft to the LAD selective angiography was performed in multiple views using a 5 Fr. IM catheter. Saphenous Vein graft to the OM 1 selective angiography was performed in multiple views using a 5 Fr. JL4 catheter. Left Coronary Artery selective angiography was performed in multiple views using a 5 Fr. JL4 catheter. Right Coronary Artery selective angiography was then performed in multiple views using a 5 Fr. 3DRC (Geovanni) catheter.The images were reviewed and options discussed. A decision was then made to proceed with an Intervention, IVUS or other adjunct procedure. xb3 Guide catheter was inserted and engaged into the LCA. bmw Guide wire was advanced to the 2nd OM. sc euphora 2.25 x 15 Balloon catheter was advanced across lesion in the second obtuse marginal, proximal BMW Guide wire was exchanged for a whisper sc euphora 2.25 x 15 Balloon catheter was advanced across lesion in the second obtuse marginal, proximal PTCA balloon inflated at 10 atms for 38 secs. Angiogram performed post balloon dilatation. 1.5 x 15 Balloon catheter was advanced across lesion in the second obtuse marginal, proximal PTCA balloon inflated at 10 atms for 20 secs. PTCA balloon inflated at 10 atms for 26 secs. PTCA balloon inflated at 10 atms for 11 secs. PTCA balloon inflated at 12 atms for 14 secs. PTCA balloon inflated at 12 atms for 11 secs. PTCA balloon inflated at 14 atms for 15 secs. PTCA balloon inflated at 14 atms for 12 secs. Angiogram performed post balloon dilatation. The arterial sheath was pulled and a TR Band was applied for hemostasis INTERVENTION INFORMATION LESION SITE: 2nd OM (Proximal) Lesion Complexity: High/C, chronic total occlusion: No, lesion at bifurcation: No, thrombus present: No, lesion length: 25 mm, culprit lesion: Yes, Previously treated lesion: Yes, Timeframe of previous treatment: Time unknown, Previously treated with a stent: Yes Stent Type: with stent type unknown, In-stent restenosis: Yes Pre Stenosis: 95 % Pre intervention DIEGO flow: 3 PROCEDURE: Balloon Angioplasty 1.5mm balloon crossed to the distal part of the stent. 2.25mm balloon did not cross to the distal part of the stent and was used to perform PTCA of the proximal part of the stent Post Stenosis: 60 % Post intervention DIEGO flow: 3 Lesion Devices: Cordis 6 Fr XB3.0 100cm Guide Catheter Greco .014 190cm BMW [place] Straight Medtronic 6 Fr JL3.5 100cm Guide Catheter Medtronic SC EUPHORA RX 2.25x15 BALLOON Greco .014 190cm HT Whisper MS Straight [employer] 6 Ukrainian GuideLiner Medtronic SC EUPHORA RX 1.5x15 BALLOON COMPLICATIONS No Complications PROCEDURE MEDICATIONS Versed 1 mg IV Fentanyl 50 mcg IV Versed 1 mg IV Versed 1 mg IV Fentanyl 25 mcg IV Oxygen: 2 L/min via nasal cannula Heparin given IA 09/01/2022 09:48:15 Heparin 5000 unit(s) IV 09/01/2022 10:10:17 Nitro 150 mcg IC 09/01/2022 10:43:29 Verapamil 2.5mg, Ntg 100mcgs, 3000 units of Heparin given IA 09/01/2022 09:48:15 SUMMARY OF HEMODYNAMIC DATA Time AIR REST ECG 09:16:26 AO 126/65 (87) 09:49:32 AIR REST 11:20:11 Signed By Mary Medrano MD On 09/01/2022 13:40:11 Mary Medrano MD
--- NOTE | 2022-09-01 14:38 | CRPHASE1_ITS ---
Patient Communication Former Patient:: Phase I Guide to Cardiac Rehab Given to Patient:: Yes Dynamometer Tuner:: Digna Medrano Cardiac Rehabilitation Info Cardiac Rehabilitation Program Information: Cardiac Rehab The cardiac rehab team at [facility] consists of highly skilled exercise physiologists, nurses, respiratory therapists and physicians working together with you. Our purpose is to help you have a full recovery and achieve the goals you set for yourself. Over the years many of our patients have returned to activities they assumed they would never do again! We can help restore your confidence and motivation to make lifestyle changes that can have a significant impact on your health and quality of life! We can help answer questions and concerns you may have about exercise, lifestyle, medications, diet, stress and anxiety which are common following a hospitalization. WE monitor ECG and vital signs during exercise and discuss your progress with you and report to your physician(s). Cardiac Rehab is proven to help reduce readmissions, improve functional capacity and lower recurrence of problems with your heart. Our Cardiac Rehab program is Certified by the [place] [employer]-Vascular and Pulmonary [employer] (AACVPR) and Accredited by the [place] [employer] through our [facility]. You can contact us at . We invite you to call us with your questions or to get started in our program. If you have other questions or concerns be sure to ask your physician/provider during your follow-up visit. WE look forward to seeing you!
--- NOTE | 2022-09-01 14:39 | CRPH1.INST_ITS ---
General Education CAD and cardiac anatomy and function:: Patient communicates acknowledgment Explanation of diagnoses and procedures:: Patient communicates acknowledgment Sign/Symptoms of [place]:: Patient communicates acknowledgment Antiplatelet therapy: Patient communicates acknowledgment Proper use of NTG-SL: Patient communicates acknowledgment Emergency procedures and activation of EMS: Patient communicates acknowledgment Compliance of all prescribed medications: Patient communicates acknowledgment Smoking Recommendations Include:: Second-hand smoke recommendation Nicotine/Smoking Response Code:: Patient communicates acknowledgment Dyslipidemia Recommendations Include:: Lipid profile not available Dyslipidemia Response Code:: Patient communicates acknowledgment Overweight/Obesity Patient Overweight/Obesity Risk Factors Are:: Obesity - > or = 30 Recommendations Include:: Weight loss of 5-10%, Reduced calorie diet, Exercise 5-7 times/week Overweight/Obesity:: Patient communicates acknowledgment Hypertension Recommendations Include:: Maintain BP <130/85, BP <130/80 if diabetic, Decrease/maintain normal body weight Hypertension:: Patient communicates acknowledgment Heart Disease Patient Heart Disease Risk Factors Are:: Family history of heart disease < 65 y ears old, Previous cardiac event Recommendations Include:: Educated family members of their risk Heart Disease Response Code:: Patient communicates acknowledgment Diabetes Patient Diabetes Risk Factors Are:: Elevated blood sugars Recommendations Include:: Maintain fasting blood sugars 70-110 md/dL, Maintain HgbA1c of 6% or less, Monitor blood sugar as prescribed, Diabetic dietary guidelines, Decrease/maintain body weight Diabetes:: Patient communicates acknowledgment Metabolic Syndrome Patient Metabolic Syndrome Risk Factors Are [3 of 5]:: Fasting blood sugar > 100 mg/dL, Hypertension Recommendations Include:: Does not meet criteria Metabolic Syndrome Response Code:: Patient communicates acknowledgment Sedentary Patient Sedentary Risk Factors Are:: Lack of regular exercise Recommendations Include:: Aerobic exercise 5-7 times/week for 20-30 minutes continuously, Monitored Outpatient Cardiac Rehab Sedentary Response Code:: Patient communicates acknowledgment Stress Recommendations Include:: Identification of stressors, and assessment of coping skills Stress Response Code:: Patient communicates acknowledgment
--- NOTE | 2022-09-01 14:49 | PN.RENAL_ITS ---
Subjective Subjective No new complaints Objective Data Objective Data Vital Signs: Vital Signs Temp Pulse Resp BP Pulse Ox O2 Del Method 97.4 F L 64 18 125/50 H 97 Room Air 09/01/22 11:30 09/01/22 14:00 09/01/22 14:00 09/01/22 14:00 09/01/22 14:00 09/01/22 14:00 Oxygen Delivery Method Room Air Weight: 92.4 kg Body Mass Index (BMI) 36.1 Intake & Output: Intake and Output for Last 24 Hours 08/30/22 08/31/22 09/01/22 23:59 23:59 23:59 Intake Total 855.5 / 855.5 1478.97 / 1478.97 Output Total 3700 / 3700 800 / 800 Balance -2844.5 / -2844.5 678.97 / 678.97 Lab / Micro Data Result Diagrams: 08/31/22 05:05 08/31/22 20:12 Labs: Laboratory Results - last 24 hr 08/31/22 14:35: Urine Color Yellow, Urine Clarity Clear, Urine pH 6.0, Ur Specific [place] 1.015, Urine Protein Negative, Urine Glucose (UA) Normal, Urine Ketones Negative, Urine Occult Blood 10 H, Urine Nitrite Negative, Urine Bilirubin Negative, Urine Urobilinogen Normal, Ur Leukocyte Esterase 500 H, Urine RBC 0 SEEN, Urine WBC 10-25 SEEN, Ur Squamous Epith Cells 10-25 SEEN, Urine Bacteria 2+, Urine Mucus 0 SEEN 08/31/22 14:35: U Random Total Protein 6.0, Urine Creatinine 23.90 08/31/22 14:35: Urine Urea Nitrogen 222 08/31/22 18:30: APTT 59.3 H 08/31/22 20:12: Sodium 140 08/31/22 20:30: POC Glucose 183 H 09/01/22 00:10: APTT 91.9 H* 09/01/22 07:00: APTT 78.3 H 09/01/22 11:40: POC Glucose 117 H Micro: Microbiology 08/31/22 14:32 Urine, Clean Catch Urine Culture - Final Mixed Gram Positive Organisms 08/30/22 14:20 Nasal Secretion SARS-CoV-2 & FLU Antigen (Rapid) - Final Rhythm Strip Rhythm Strip: A-fib Rate: 85 Ectopy: None Physical Exam Narrative General: Alert and oriented x3, no apparent distress. HEENT: Normocephalic, atraumatic, PERRLA, EOMI, hearing is intact, mucous membrane moist without erythema. Neck: Supple, no JVD, trachea is midline. Heart: Normal S1, S2, no gallops, murmurs or rubs. Lungs: Clear to auscultation bilaterally. Abdomen: Normal bowel sound, soft, nontender, no guarding or rebound. Extremities: No clubbing, cyanosis, or edema. Musculoskeletal: Full passive range of motion, no joint swelling. Neurologic: Cranial nerves II to XII are grossly intact. There is no focal neurologic deficit. Skin: Warm and dry without rash. Psychiatric: Normal mood and affect. Assessment & Plan Assessment/Plan (1) ILANA (acute kidney injury): (2) Chronic kidney disease, stage 3b: (3) Essential hypertension: (4) CAD (coronary artery disease): PLAN: Plan Impression/Plan: The patient is a 72-year-old woman with past history of CAD status post PCI in September 2014, diet-controlled type 2 diabetes mellitus, hypertension, COPD, atrial fibrillation on apixaban, and hyperlipidemia. The patient was admitted to the hospital on 08/30/2022 with NSTEMI. Nephrology is asked to see the patient because of ILANA on CKD. Acute kidney injury on chronic kidney disease stage IIIb. Baseline serum creatinine has been around 1.1 to 1.2 mg/dL. The patient presented to the hospital with serum creatinine 1.29 mg/dL which has increased to 1.43 mg/dL Urine output is still present. S/p coronary angiogram diagnostic this morning. She will need PCI. Says she is voiding okay. No obstructive symptoms. Repeat BMP in a.m.
--- NOTE | 2022-09-01 16:43 | PCM.PN.HOSP ---
Subjective Subjective Patient was seen and examined today, she underwent a cardiac catheterization had an angioplasty today, she had an in-stent stenosis in her circumflex artery. Patient is currently on room air, she does not complain of any shortness of breath Objective Data Objective Data Vital Signs: Vital Signs Temp Pulse Resp BP Pulse Ox O2 Del Method 97.2 F L 73 18 148/73 H 98 Room Air 09/01/22 16:00 09/01/22 16:00 09/01/22 16:00 09/01/22 16:00 09/01/22 16:00 09/01/22 16:00 Oxygen Delivery Method Room Air Weight: 92.4 kg Body Mass Index (BMI) 36.1 Intake & Output: Intake and Output for Last 24 Hours 08/30/22 08/31/22 09/01/22 23:59 23:59 23:59 Intake Total 855.5 / 855.5 1478.97 / 1478.97 Output Total 3700 / 3700 800 / 800 Balance -2844.5 / -2844.5 678.97 / 678.97 Lab / Micro Data Result Diagrams: 08/31/22 05:05 08/31/22 20:12 Labs: Laboratory Results - last 24 hr 08/31/22 14:35: Urine Color Yellow, Urine Clarity Clear, Urine pH 6.0, Ur Specific [place] 1.015, Urine Protein Negative, Urine Glucose (UA) Normal, Urine Ketones Negative, Urine Occult Blood 10 H, Urine Nitrite Negative, Urine Bilirubin Negative, Urine Urobilinogen Normal, Ur Leukocyte Esterase 500 H, Urine RBC 0 SEEN, Urine WBC 10-25 SEEN, Ur Squamous Epith Cells 10-25 SEEN, Urine Bacteria 2+, Urine Mucus 0 SEEN 08/31/22 14:35: U Random Total Protein 6.0, Urine Creatinine 23.90 08/31/22 14:35: Urine Urea Nitrogen 222 08/31/22 18:30: APTT 59.3 H 08/31/22 20:12: Sodium 140 08/31/22 20:30: POC Glucose 183 H 09/01/22 00:10: APTT 91.9 H* 09/01/22 07:00: APTT 78.3 H 09/01/22 11:40: POC Glucose 117 H Micro: Microbiology 08/31/22 14:32 Urine, Clean Catch Urine Culture - Final Mixed Gram Positive Organisms 08/30/22 14:20 Nasal Secretion SARS-CoV-2 & FLU Antigen (Rapid) - Final Rhythm Strip Rhythm Strip: A-fib Rate: 85 Ectopy: None Physical Exam Narrative alert, oriented x3, no apparent distress and healthy appearing General Appearance: cooperative, well kempt and well developed Orientation / Consciousness: awake, oriented to person, oriented to place and oriented to time HEENT normocephalic, head/scalp atraumatic and moist oral mucous membranes Eyes PERRL, EOMs intact bilaterally and conjunctivae normal Neck supple, no JVD, thyroid normal and no carotid bruits General: trachea midline Resp normal respiratory effort, no retractions, no use of accessory muscles and clear to auscultation bilaterally Auscultation: Negative for rales, rhonchi or wheezes Cardio S1 normal heart sound, S2 normal heart sound, no murmurs, no rub and no gallops Cardio Narrative: Heart rate and rhythm is irregular GI normal to inspection, nondistended, normoactive bowel sounds, soft to palpation, non-tender and non-distended Extremity no clubbing, cyanosis or edema Skin no rashes or lesions noted General Skin Exam: no breakdown Neuro oriented x3, CN's II-XII intact bilaterally, moves all extremities, no focal motor deficits and no sensory deficits noted Sensorium / Orientation: awake, alert, oriented to person, oriented to place and oriented to time Speech: speech normal Psych affect normal Assessment & Plan Assessment/Plan (1) Acute heart failure with preserved ejection fraction: PLAN: Plan 1. [id number] will remain on her present medications, she has been seen by cardiology, she will undergo cardiac catheterization tomorrow #2 acute congestive heart failure with preserved ejection fraction-patient is off diuretics at this time due to concerns of renal impairment, I agree with this approach at this time #3 Obstructive coronary artery disease-complicates care, medical course, recovery, and prognosis, she is to remain on her present medications with any adjustments from cardiology, again patient underwent a balloon angioplasty of the circumflex artery stent today #4 chronic atrial fibrillation-patient is on rate control medications and anticoagulants #5 hypercoagulable state secondary to atrial fibrillation-patient is anticoagulated presently #6 essential hypertension-patient will remain on her present medications #7 COPD-complicates care, medical course, recovery, and prognosis Total clinical time spent by myself addressing the patient's medical issues, reviewing all of the data, and collaborating with the patient's care team:36 minutes Charges/Coding Visit Charges Inpatient E&M: 71190 Subs Hosp L2
[2022-09-01 22:50] LABS: Bedside Glucose 144 mg/dL (74-106)
[2022-09-02] MEDS: Ipratropium/Albuterol Sulfate 3 ML AMPUL.NEB INHALATION ×2 (01:19→07:15)
[2022-09-02 01:20] VITALS: PULSE 80; RESP 20
[2022-09-02 03:20] VITALS: BP 150/72; PULSE 80; RESP 18; TEMP 36.6; O2SAT 99
[2022-09-02 06:46] LABS: Hemoglobin 12.6 g/dL (12.0-15.0); Mean Corp Hgb Conc 33.2 g/dL (32-36); Mean Corpuscular Hgb 30.7 pg (27.0-32.0); Mean Corpuscular Volume 92.7 fL (81-99); Mean Platelet Vol. 9.8 fl (6.2-12.0); Platelet Count 327 K/mm3 (150-450); RBC Distribution Width CV 14.7 % (11.6-14.6); RBC Distribution Width SD 50.1 fl (35.1-43.9); White Blood Count 6.1 K/mm3 (4.4-11.0)
[2022-09-02 07:15] VITALS: PULSE 85; RESP 16; O2SAT 96
[2022-09-02 07:15] LABS: Bedside Glucose 124 mg/dL (74-106)
[2022-09-02 07:32] LABS: AST(SGOT) 22 U/L (15-37); Alanine Aminotransfer ALT/SGPT 41 U/L (13-56); Albumin, Serum 3.4 g/dL (3.2-5.0); Alkaline Phosphatase 63 U/L (45-117); Anion Gap 11 (5-15); BUN 46 mg/dL (7-18); BUN/Creat Ratio 33.1 RATIO (10-20); Calcium,Total 9.8 mg/dL (8.5-10.1); Chloride 104 mmol/L (98-107); Creatinine, Serum 1.39 mg/dL (0.55-1.02); EST Glomerular Filtration Rate 40 mL/min (>60); Est Glom Filt Rate - Afr Amer 48 mL/min (>60); Estimated Creatinine Clearance 30.26 ml/min; Globulin 3.4 g/dL (2.2-4.2); Glucose 122 mg/dL (74-106); Potassium 4.1 mmol/L (3.5-5.1); Protein, Total 6.8 g/dL (6.4-8.2); Sodium Level 140 mmol/L (136-145)
--- NOTE | 2022-09-02 08:25 | PN.CARD_ITS ---
Subjective Subjective Patient seen and evaluated. Objective Data Vital Signs: Vital Signs Temp Pulse Resp BP Pulse Ox O2 Del Method 97.8 F 85 16 150/72 H 96 Room Air 09/02/22 03:20 09/02/22 07:15 09/02/22 07:15 09/02/22 03:20 09/02/22 07:15 09/02/22 07:15 Oxygen Delivery Method Room Air Weight: 203 lb 11.314 oz Body Mass Index (BMI) 36.1 Intake & Output: Intake and Output for Last 24 Hours 08/31/22 09/01/22 09/02/22 23:59 23:59 23:59 Intake Total 855.5 / 855.5 1718.97 / 1958.97 480 / 480 Output Total 3700 / 3700 1500 / 2050 1250 / 1250 Balance -2844.5 / -2844.5 218.97 / -91.03 -770 / -770 Lab / Micro Data Result Diagrams: 09/02/22 05:18 09/02/22 05:18 Labs: Laboratory Results - last 24 hr 09/01/22 11:40: POC Glucose 117 H 09/01/22 21:32: POC Glucose 144 H 09/02/22 05:18: WBC 6.1, RBC 4.10 L, Hgb 12.6, Hct 38.0, MCV 92.7, MCH 30.7, MCHC 33.2, RDW Std Deviation 50.1 H, RDW Coeff of [place] 14.7 H, Plt Count 327, MPV 9.8 09/02/22 05:18: Sodium 140, Potassium 4.1, Chloride 104, Carbon Dioxide 25.0, Anion Gap 11, BUN 46 H, Creatinine 1.39 H, Estim Creat Clear Calc 30.26, Est GFR (MDRD) Af Amer 48 L, Est GFR (MDRD) Non-Af 40 L, BUN/Creatinine Ratio 33.1 H, Glucose 122 H, Calcium 9.8, Total Bilirubin 0.40, AST 22, ALT 41, Alkaline Phosp hatase 63, Total Protein 6.8, Albumin 3.4, Globulin 3.4, Albumin/Globulin Ratio 1.0 09/02/22 06:26: POC Glucose 124 H Micro: Microbiology 08/31/22 14:32 Urine, Clean Catch Urine Culture - Final Mixed Gram Positive Organisms Rhythm Strip Rhythm Strip: A-fib Rate: 85 Ectopy: None Cardiology Labs/Tests 09/02/22 05:18: WBC 6.1, RBC 4.10 L, Hgb 12.6, Hct 38.0, MCV 92.7, MCH 30.7, MCHC 33.2, Plt Count 327, MPV 9.8 09/02/22 05:18: Sodium 140, Potassium 4.1, Chloride 104, Carbon Dioxide 25.0, Anion Gap 11, BUN 46 H, Creatinine 1.39 H, Est GFR (MDRD) Af Amer 48 L, Est GFR (MDRD) Non-Af 40 L, BUN/Creatinine Ratio 33.1 H, Glucose 122 H, Calcium 9.8, Total Bilirubin 0.40 Rhythm: EKG: ECHO: Stress Test: Cardiac Cath: PCI: CT Surgery: Holter monitor: EPS: PPM: CXR: Chest CT Scan: Radiography Diagnostic Testing: Radiology Impression Renal Ultrasound 09/01/22 07:00 IMPRESSION: 1. Benign renal cysts. 2. No other significant abnormalities. Electronically Signed: Eugene Maciel MD at 21:15 EST Reading Location ID and State: [address] [place] [address] Tel , Service support , Physical Exam Const alert, oriented x3 and no apparent distress General Appearance: cooperative HEENT hearing grossly normal bilaterally Head and Scalp: atraumatic Eyes EOMs intact bilaterally Neck General: normal visual inspection Chest inspection of chest normal and palpation of chest normal Resp normal respiratory effort Auscultation: clear to auscultation bilaterally Cardio regular rate, regular rhythm, S1 normal heart sound and S2 normal heart sound Jugular Venous Distention: JVD GI normal to inspection, nondistended, normoactive bowel sounds Extremity normal capillary refill and no pedal edema Peripheral Pulses: Yes pulses 2+ throughout and femoral pulses present Skin no rashes or lesions noted Neuro oriented x3 and CN's II-XII intact bilaterally Psych Appearance: grossly normal and appropriate Assessment & Plan Assessment/Plan (1) NSTEMI, initial episode of care: PLAN: Patient has an elevated troponin level with a non-ST elevation myocardial infarction. The above is likely secondary to coronary artery disease and plaque rupture. * Patient underwent a cardiac catheterization which demonstrated the following * Left main coronary artery with distal 30% stenosis * Left anterior descending artery which is totally occluded * Proximal left circumflex artery with 60% stenosis and a dominant circumflex artery * Saphenous vein graft to the obtuse marginal branch which is patent * Saphenous vein graft to the diagonal vessel not apparent yet * Left internal mammary artery to left anterior descending artery which is patent * Nondominant right coronary artery with 80% proximal stenosis * Distal circumflex artery with 80% in-stent stenosis noted in the posterior lateral vessel * Previously placed stent in the distal posterior descending coronary artery from the circumflex artery which is patent * * Based on the above angiographic findings the patient underwent PCI of the same vessel. (2) CAD (coronary artery disease): PLAN: Patient has known coronary artery disease and is status post coronary by pass surgery as noted above. * Treatment would be as suggested (3) Presence of stent in coronary artery: PLAN: Patient has evidence of a previous in-stent stenosis of the circumflex artery which is dominant. She will undergo PCI of the above. Plan to be to continue aspirin and clopidogrel (4) Essential hypertension: PLAN: Patient has a history of hypertension her blood pressure is under good control continue current medical therapy (5) Pure hypercholesterolemia: PLAN: Will recommend aggressive lipid-lowering therapy. (6) Aortocoronary bypass status: PLAN: Status post coronary bypass surgery as noted above. (7) Atrial fibrillation: PLAN: Patient has a history of atrial fibrillation with a controlled ventricular response rate. We will continue anticoagulation and then resume beta-billie. Thank you for allowing me to participate in the care of your patient. Please don't hesitate to call if any issues arise.
[2022-09-02] MEDS: Isosorbide Mononitrate 30 MG Tablet PO (08:57)
[2022-09-02] MEDS: Atenolol 25 MG Tablet PO (08:57)
[2022-09-02] MEDS: Aspirin 81 MG TAB.CHEW PO (08:57)
[2022-09-02] MEDS: Clopidogrel Bisulfate 75 MG Tablet PO (08:57)
[2022-09-02] MEDS: Cholecalciferol (Vit D3) 125 MCG CAPSULE (5,000 UNITS) PO (08:58)
[2022-09-02 09:20] VITALS: BP 155/63; PULSE 89; RESP 14; TEMP 36.8; O2SAT 98
--- NOTE | 2022-09-02 09:56 | PCM.DC ---
Discharge Instructions Diet Discharge Diet: 1800 Calorie Control Diet Activity Discharge Activity: Return to Normal Activity Weight Bearing Status: Full weight bearing Follow Up Care Test Results: Test results from this visit will be discussed in further detail at your follow-up appointment, if applicable. Discharge Plan Admission Admit Date/Time: 08/30/22 16:40 Primary Reason for Your Visit: non STEMI Attending Provider: Gera Cunningham Primary Care Provider: Anali Daley Consulting Providers: Keven Delacruz ; Christina Williamson ; Elizabeth Fabian Discharge Orders/Prescriptions Prescriptions: New atorvastatin 40 mg Tablet 40 mg PO QHS Qty: 30 0RF aspirin 81 mg Tablet,Chewable 81 mg PO BREAKFAST Qty: 0 0RF Continued Lactobacillus acidophilus chewable tablet tablet,chewable 1 tab PO DAILY nitroglycerin 0.4 mg tablet, sublingual 0.4 mg SUBLINGUAL Q5M PRN (Reason: Chest Pain) Qty: 90 6RF cholecalciferol (vitamin D3) 125 mcg (5,000 unit) capsule 125 mcg PO DAILY ipratropium-albuterol 0.5 mg-3 mg(2.5 mg base)/3 mL solution for nebulization 3 ml inhalation Q6H albuterol sulfate 108 HFA aerosol inhaler 1 - 2 puff Q4H PRN PRN (Reason: Sob &/Or Wheezing) Label Comments: isosorbide mononitrate 30 mg tablet extended release 24 hr 30 mg PO DAILY atenolol 25 mg tablet 25 mg PO DAILY clopidogrel 75 mg tablet 75 mg PO DAILY lisinopril 10 mg tablet 10 mg PO DAILY apixaban 5 mg tablet 5 mg PO BID Referrals / Follow Up: Anali Daley DO [Primary Care Provider] - See Referral Note (within 3-4 weeks) Nilson Dyer NP, MAR[facility] RU[facility]ER-C [Med Staff - [facility]] - 09/30/22 1:30 pm Disposition Disposition (needs filled in before D/C Order can be placed): Home, Self Care
--- NOTE | 2022-09-02 10:00 | EKG12_ITS ---
Test Reason : AM EKG Blood Pressure : / mmHG Vent. Rate : 073 BPM Atrial Rate : 000 BPM P-R Int : 000 ms QRS Dur : 108 ms QT Int : 484 ms P-R-T Axes : 000 033 217 degrees QTc Int : 533 ms Atrial fibrillation with a competing junctional pacemaker Incomplete left bundle branch block Minimal voltage criteria for LVH, may be normal variant ( Saleem product ) ST & Marked T wave abnormality, consider inferior ischemia ST & Marked T wave abnormality, consider anterolateral ischemia Prolonged QT Abnormal ECG When compared with ECG of 01-SEP-2022 11:46, MANUAL COMPARISON REQUIRED, DATA IS UNCONFIRMED Confirmed by PITER PEARL, MARIA A ([id number]), purchasing expeditor MARY GALLEGO ([id number]) on 09/05/2022 9:17:13 AM Referred By: Confirmed By:CANDELARIA DUMAS MD
--- NOTE | 2022-09-02 10:03 | DS.PCM_ITS ---
Providers Date of Admission: 08/30/22 Date of Discharge: 09/02/22 Primary Care Physician: Dr. Anali Daley, Consultations 08/30/22 17:23 Consult: Cardiology Routine Consulting Provider: Keven Delacruz Reason for Consult: nonstemi EMERGENT Consult: No Notified: Yes Date Notified: 08/30/22 Time Notified: 17:23 Method of Notification: Text 08/31/22 15:34 Consult: Nephrology Routine Consulting Provider: Elizabeth Fabian Reason for Consult: elevated creatinine EMERGENT Consult: No Notified: Yes Date Notified: 08/31/22 Time Notified: 15:40 Method of Notification: Answering Service Reason For Visit: NONSTEMI Diagnosis Discharge Diagnosis (1) NSTEMI, initial episode of care: Status: Acute Code(s): I21.4 - Non-ST elevation (NSTEMI) myocardial infarction (2) CAD (coronary artery disease): Status: Acute Code(s): I25.10 - Atherosclerotic heart disease of [place] coronary artery without angina pectoris (3) Presence of stent in coronary artery: Status: Chronic Code(s): Z95.5 - Presence of coronary angioplasty implant and graft (4) Essential hypertension: Status: Chronic Code(s): I10 - Essential (primary) hypertension (5) Pure hypercholesterolemia: Status: Chronic Code(s): E78.00 - Pure hypercholesterolemia, unspecified (6) Aortocoronary bypass status: Status: Resolved Code(s): Z95.1 - Presence of aortocoronary bypass graft (7) Atrial fibrillation: Status: Acute Code(s): I48.91 - Unspecified atrial fibrillation Plan 1. [id number] will remain on her present medications, she has been seen by cardiology, she will undergo cardiac catheterization tomorrow #2 acute congestive heart failure with preserved ejection fraction-patient is off diuretics at this time due to concerns of renal impairment, I agree with this approach at this time #3 Obstructive coronary artery disease-complicates care, medical course, recovery, and prognosis, she is to remain on her present medications with any adjustments from cardiology, again patient underwent a balloon angioplasty of the circumflex artery stent today #4 chronic atrial fibrillation-patient is on rate control medications and anticoagulants #5 hypercoagulable state secondary to atrial fibrillation-patient is anticoagulated presently #6 essential hypertension-patient will remain on her present medications #7 COPD-complicates care, medical course, recovery, and prognosis #8 chronic kidney disease stage IIIb #9 acute kidney injury Total clinical time spent by myself addressing the patient's medical issues, reviewing all of the data, and collaborating with the patient's care team:36 minutes Medications at Discharge Home Medications albuterol sulfate 90 mcg/actuation aerosol inhaler 1 - 2 puff Q4H PRN PRN Sob &/Or Wheezing 09/10/17 Lactobacillus acidophilus (Acidophilus chewable tablet) 1 tab PO DAILY stomach 11/17/18 nitroglycerin 0.4 mg sublingual tablet 0.4 mg sublingual Q5M PRN Chest Pain #90 tabs 12/15/19 cholecalciferol (vitamin D3) 125 mcg (5,000 unit) capsule 125 mcg PO DAILY supplement 06/07/21 ipratropium 0.5 mg-albuterol 3 mg (2.5 mg base)/3 mL nebulization soln 3 ml inhalation Q6H SOB 07/10/22 apixaban 5 mg tablet 5 mg PO BID blood thinner 08/30/22 atenolol 25 mg tablet 25 mg PO DAILY heart rate 08/30/22 clopidogrel 75 mg tablet 75 mg PO DAILY antiplatelet 08/30/22 isosorbide mononitrate 30 mg tablet,extended release 24 hr 30 mg PO DAILY blood pressure 08/30/22 lisinopril 10 mg tablet 10 mg PO DAILY blood pressure 08/30/22 aspirin 81 mg chewable tablet 81 mg PO BREAKFAST #0 tabs 09/02/22 atorvastatin 40 mg tablet 40 mg PO QHS #30 tabs 09/02/22 Hospital Course Operations None Procedures Cardiac catheterization Summary of Care Provided Minutes Spent on Discharge: 33 Hospital Course: This 72-year-old white female was seen in the emergency room at [facility] with complaints of shortness of breath, she does see pulmonology as an outpatient and was found to have a partially reversible moderately severe large airways obstructive ventilatory defect with associated hyperinflation, air trapping, and symmetric reduction diffusing capacity on her PFTs. Patient had a recent echocardiogram and stress test, the stress test was abnormal and patient was scheduled to have a cardiac catheterization on September 17, 2022, however, due to worsening shortness of breath she came to the ER for evaluation. Evaluation in the ER showed that her oxygen saturation was 97% on room air, troponin was elevated at 389 and her beta nitric peptide was elevated at 752. EKG showed atrial fibrillation with a well-controlled ventricular response. Chest x-ray showed no acute cardiopulmonary findings. Patient was admitted to PCU for non-STEMI and acute CHF with preserved ejection fraction, she was placed on IV Lasix for congestive heart failure, cardiac enzymes were cycled and remained elevated below 400. Patient was seen in consultation by nephrology. Patient underwent a cardiac catheterization which showed an in- stent stenosis in the circumflex coronary artery. She underwent a balloon angioplasty without complications. Nephrology stopped the patient's IV Lasix du e to concerns of worsening kidney function. On 09/02/2022, patient was seen and examined: On examination she appeared in good health and spirits, she does not appear to be in any distress. Vital signs as documented. Skin warm and dry and without overt rashes. Neck without JVD, thyroid appears normal, trachea is midline, neck is supple. Lungs clear, normal air movement was noted. Heart exam notable for irregular rhythm, normal sounds and absence of murmurs, rubs or gallops. Abdomen unremarkable and without evidence of organomegaly, masses, or abdominal aortic enlargement, bowel sounds are present in all 4 quadrants, no abdominal tenderness was noted. Extremities nonedematous, no cyanosis was noted, no clubbing was noted. Neuro: Cranial nerves II through XII are grossly intact, no focal motor deficits were noted, sensation to light touch and pinprick is intact, motor exam 5/5 throughout. Psych: Patient is alert and oriented x3, she does not appear anxious or depressed, she does not appear agitated. Patient appears stable for discharge on 09/02/2022 Weight / BMI Weight Weight: 92.4 kg Body Mass Index (BMI) 36.1 ABG / Lab / Microbiology Data Result Diagrams: 09/02/22 05:18 09/02/22 05:18 Laboratory: Laboratory Results - last 24 hr 09/01/22 11:40: POC Glucose 117 H 09/01/22 21:32: POC Glucose 144 H 09/02/22 05:18: WBC 6.1, RBC 4.10 L, Hgb 12.6, Hct 38.0, MCV 92.7, MCH 30.7, MCHC 33.2, RDW Std Deviation 50.1 H, RDW Coeff of [place] 14.7 H, Plt Count 327, MPV 9.8 09/02/22 05:18: Sodium 140, Potassium 4.1, Chloride 104, Carbon Dioxide 25.0, Anion Gap 11, BUN 46 H, Creatinine 1.39 H, Estim Creat Clear Calc 30.26, Est GFR (MDRD) Af Amer 48 L, Est GFR (MDRD) Non-Af 40 L, BUN/Creatinine Ratio 33.1 H, Glucose 122 H, Calcium 9.8, Total Bilirubin 0.40, AST 22, ALT 41, Alkaline Phosphatase 63, Total Protein 6.8, Albumin 3.4, Globulin 3.4, Albumin/Globulin Ratio 1.0 09/02/22 06:26: POC Glucose 124 H Microbiology: Microbiology 08/31/22 14:32 Urine, Clean Catch Urine Culture - Final Mixed Gram Positive Organisms 08/30/22 14:20 Nasal Secretion SARS-CoV-2 & FLU Antigen (Rapid) - Final Radiography Diagnostic Testing: Radiology Impression Renal Ultrasound 09/01/22 07:00 IMPRESSION: 1. Benign renal cysts. 2. No other significant abnormalities. Electronically Signed: Eugene Maciel MD at 21:15 EST Reading Location ID and State: [facility] / [place] Tel , Service support , D/C Instructions Discharge Diet: 1800 Calorie Control Diet Weight Bearing Status: Full weight bearing Meaningful Use Info Meaningful Use Diagnoses (Choose all that apply): AMI AMI/Post PCI/Angioplasty Aspirin given w/in 24hrs of arrival?: Yes ASA at discharge?: Yes Antiplatelet Therapy at Discharge:: Yes Statins at discharge?: Yes [place]/ARB at discharge?: Yes Beta Lashaun at discharge?: Yes Done w/ Acute AR measure.: Yes Documented LVEF (%): 60 Discharge Plan Admission Admit Date/Time: 08/30/22 16:40 Primary Reason for Your Visit: non STEMI Attending Provider: Gera Cunningham Primary Care Provider: Anali Daley Consulting Providers: Keven Delacruz ; Christina Williamson ; Elizabeth Fabian Discharge Orders/Prescriptions Prescriptions: New atorvastatin 40 mg Tablet 40 mg PO QHS Qty: 30 0RF aspirin 81 mg Tablet,Chewable 81 mg PO BREAKFAST Qty: 0 0RF Continued Lactobacillus acidophilus chewable tablet tablet,chewable 1 tab PO DAILY nitroglycerin 0.4 mg tablet, sublingual 0.4 mg SUBLINGUAL Q5M PRN (Reason: Chest Pain) Qty: 90 6RF cholecalciferol (vitamin D3) 125 mcg (5,000 unit) capsule 125 mcg PO DAILY ipratropium-albuterol 0.5 mg-3 mg(2.5 mg base)/3 mL solution for nebulization 3 ml inhalation Q6H albuterol sulfate 108 HFA aerosol inhaler 1 - 2 puff Q4H PRN PRN (Reason: Sob &/Or Wheezing) Label Comments: isosorbide mononitrate 30 mg tablet extended release 24 hr 30 mg PO DAILY atenolol 25 mg tablet 25 mg PO DAILY clopidogrel 75 mg tablet 75 mg PO DAILY lisinopril 10 mg tablet 10 mg PO DAILY apixaban 5 mg tablet 5 mg PO BID Referrals / Follow Up: Anali Daley DO [Primary Care Provider] - See Referral Note (within 3-4 weeks) Nilson Dyer NP, [employer] [Med Staff - Adv Practice Prof] - 09/30/22 1:30 pm Disposition Disposition (needs filled in before D/C Order can be placed): Home, Self Care Charges/Coding Visit Charges Inpatient E&M: 75254 Disch Hosp >30min
--- NOTE | 2022-09-02 10:21 | PHA.DC.MC ---
Pharmacy Service has performed discharge medication reconciliation and counseling for this patient. Patient resistant to starting a statin. Advised patient of the benefits of a statin. 1. ASPIRIN 81MG PO BREAKFAST 2. ATORVASTATIN 40MG PO QHS The patient's discharge medication list was reviewed for discrepancies and discrepancies were resolved. Home Medications albuterol sulfate 90 mcg/actuation aerosol inhaler 1 - 2 puff Q4H PRN PRN Sob &/Or Wheezing 09/10/17 Lactobacillus acidophilus (Acidophilus chewable tablet) 1 tab PO DAILY stomach 11/17/18 nitroglycerin 0.4 mg sublingual tablet 0.4 mg sublingual Q5M PRN Chest Pain #90 tabs 12/15/19 cholecalciferol (vitamin D3) 125 mcg (5,000 unit) capsule 125 mcg PO DAILY supplement 06/07/21 ipratropium 0.5 mg-albuterol 3 mg (2.5 mg base)/3 mL nebulization soln 3 ml inhalation Q6H SOB 07/10/22 apixaban 5 mg tablet 5 mg PO BID blood thinner 08/30/22 atenolol 25 mg tablet 25 mg PO DAILY heart rate 08/30/22 clopidogrel 75 mg tablet 75 mg PO DAILY antiplatelet 08/30/22 isosorbide mononitrate 30 mg tablet,extended release 24 hr 30 mg PO DAILY blood pressure 08/30/22 lisinopril 10 mg tablet 10 mg PO DAILY blood pressure 08/30/22 aspirin 81 mg chewable tablet 81 mg PO BREAKFAST #0 tabs 09/02/22 atorvastatin 40 mg tablet 40 mg PO QHS #30 tabs 09/02/22 The patient was counseled on the following discharge medications and changes in medications for homegoing were reviewed. The Reason for Use, instructions for use, and potential side effects were reviewed for all new medications. The patient's questions regarding all of their medications were answered. The patient was able to verbally demonstrate an understanding of their discharge medications.
== END 2022-09-02 12:04 | disposition home or self-care (01) | DRG 250 ==
LOC: ED 16:34 → PCU 16:42
PROVIDERS: Family Medicine; Internal Medicine Interventional Cardiology; Internal Medicine Nephrology; Specialist; Admitting Provider Student in an Organized Health Care Education/Training Program; Emergency Provider Emergency Medicine; PCP Family Medicine; Visit Provider Internal Medicine
DX: T82.855A Stenosis of coronary artery stent, initial encounter (principal); I21.4 Non-ST elevation (NSTEMI) myocardial infarction; I50.33 Acute on chronic diastolic (congestive) heart failure; I48.20 Chronic atrial fibrillation, unspecified; I13.0 Hypertensive heart and chronic kidney disease with heart failure and stage 1 through stage 4 chronic kidney disease, or unspecified chronic kidney disease; D68.59 Other primary thrombophilia; J44.9 Chronic obstructive pulmonary disease, unspecified; N18.32 Chronic kidney disease, stage 3b; E11.22 Type 2 diabetes mellitus with diabetic chronic kidney disease; I34.0 Nonrheumatic mitral (valve) insufficiency; E78.00 Pure hypercholesterolemia, unspecified; I25.10 Atherosclerotic heart disease of native coronary artery without angina pectoris; Z20.822 Contact with and (suspected) exposure to COVID-19; Z79.02 Long term (current) use of antithrombotics/antiplatelets; Z79.01 Long term (current) use of anticoagulants; Z79.51 Long term (current) use of inhaled steroids; Z87.891 Personal history of nicotine dependence; Z95.1 Presence of aortocoronary bypass graft; Z95.5 Presence of coronary angioplasty implant and graft
CPT/HCPCS: 36415; 71046; 76770; 80048; 80053; 80061; 81001; 82570; 82962; 83036; 83735; 83880; 84156; 84295; 84484; 84540; 85025; 85027; 85610; 85730; 87086; 87088; 87428; 92920; 93005; 93455; 93567; 94640; 99152; 99153; 99252; 99284; C1894; J7030; Q9967; A4216; C1725; C1769; C1887; G0463; J1940

== ENCOUNTER → 2023-06-30 | Outpatient (CLI) | payer MEDICARE, SELFPAY | END | disposition home or self-care (01) | LOC: LABSPEC 14:16 | PROVIDERS: PCP Nurse Practitioner Family; Visit Provider Nurse Practitioner Family | DX: N39.0 Urinary tract infection, site not specified (principal) | CPT/HCPCS: 87086; 87088; 87186 ==

== ENCOUNTER → 2023-09-23 | Outpatient (CLI) | payer MEDICARE, SELFPAY | END | disposition home or self-care (01) | LOC: LABSPEC 15:09 | PROVIDERS: PCP Nurse Practitioner Family; Referring Provider Nurse Practitioner Family; Visit Provider Nurse Practitioner Family | DX: N39.0 Urinary tract infection, site not specified (principal) | CPT/HCPCS: 87077; 87086; 87088; 87186 ==

== ENCOUNTER → 2023-11-24 | Outpatient (CLI) | payer MEDICARE, SELFPAY ==
[2023-11-24 12:33] LABS: Absolute Lymphocyte Count 1.41 X10^3/uL (0.83-4.51); Absolute Neutrophil Count 4.2 X10^3/uL (2.0-7.7); Basophil# 0.01 X10^3/uL; Basophil% 0.2 % (0-1); Eosinophil# 0.06 X10^3/uL; Hematocrit 40.4 % (37-47); Lymphocyte # 1.41 X10^3/ul (0.83-4.51); Lymphocyte % 22.9 % (19-41); Mean Corp Hgb Conc 32.2 g/dL (32-36); Mean Corpuscular Hgb 30.1 pg (27.0-32.0); Mean Corpuscular Volume 93.5 fL (81-99); Mean Platelet Vol. 10.3 fl (6.2-12.0); Monocyte# 0.52 X10^3/uL; Monocyte% 8.4 % (0-10); NRBC Flagged by Analyzer 0 % (0-5); Neutrophil # 4.15 X10^3/uL (2.7-7.7); Neutrophil % 67.2 % (47-70); Platelet Count 266 K/mm3 (150-450); RBC Distribution Width SD 52.3 fl (35.1-43.9); Red Blood Count 4.32 M/mm3 (4.2-5.4); White Blood Count 6.2 K/mm3 (4.4-11.0)
[2023-11-24 13:28] LABS: AST(SGOT) 28 U/L (15-37); Alanine Aminotransfer ALT/SGPT 19 U/L (13-56); Albumin, Serum 3.8 g/dL (3.2-5.0); Alkaline Phosphatase 67 U/L (45-117); Anion Gap 7 (5-15); BUN 35 mg/dL (7-18); BUN/Creat Ratio 26.5 RATIO (10-20); Bilirubin, Direct 0.11 mg/dL (0.00-0.30); Calcium,Total 9.7 mg/dL (8.5-10.1); Chloride 107 mmol/L (98-107); Cholesterol 427 mg/dL (200); Creatinine, Serum 1.32 mg/dL (0.55-1.02); EST Glomerular Filtration Rate 42 mL/min (>60); Est Glom Filt Rate - Afr Amer 51 mL/min (>60); Globulin 3.5 g/dL (2.2-4.2); Glucose 145 mg/dL (74-106); High Density Lipoprotein 97 mg/dL; Magnesium 1.6 mg/dL (1.6-2.6); Potassium 4.9 mmol/L (3.5-5.1); Protein, Total 7.3 g/dL (6.4-8.2); Sodium Level 136 mmol/L (136-145); Thyroid Stim Hormone (TSH) 2.09 uIU/mL (0.358-3.74); Triglycerides 81 mg/dL; Very Low Density Lipoprotein 16 mg/dL (5-40)
== END | disposition home or self-care (01) ==
LOC: LAB 10:51
PROVIDERS: PCP Nurse Practitioner Family; Referring Provider Nurse Practitioner Gerontology; Visit Provider Nurse Practitioner Gerontology
DX: E78.00 Pure hypercholesterolemia, unspecified (principal); R53.83 Other fatigue
CPT/HCPCS: 36415; 80048; 80061; 80076; 83735; 84443; 85025

== ENCOUNTER 2023-11-28 12:31 | Emergency (ER) | payer MEDICARE, SELFPAY ==
[2023-11-28 12:32] VITALS: BP 141/64; PULSE 88; RESP 16; TEMP 36.9; O2SAT 98; BMI 34.4
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
[2023-11-28] MEDS: Doxycycline 100 MG CAPSULE PO (13:25)
[2023-11-28 13:36] VITALS: BP 135/76; PULSE 82; RESP 15; TEMP 36.5; O2SAT 96
== END 2023-11-28 13:35 | disposition home or self-care (01) ==
PROVIDERS: Emergency Provider Emergency Medicine; PCP Nurse Practitioner Family; Visit Provider Emergency Medicine
DX: L08.9 Local infection of the skin and subcutaneous tissue, unspecified (principal); J44.9 Chronic obstructive pulmonary disease, unspecified; E11.22 Type 2 diabetes mellitus with diabetic chronic kidney disease; E11.42 Type 2 diabetes mellitus with diabetic polyneuropathy; I12.9 Hypertensive chronic kidney disease with stage 1 through stage 4 chronic kidney disease, or unspecified chronic kidney disease; N18.9 Chronic kidney disease, unspecified; E78.5 Hyperlipidemia, unspecified; Z79.01 Long term (current) use of anticoagulants; Z79.899 Other long term (current) drug therapy; Z87.891 Personal history of nicotine dependence; Z95.5 Presence of coronary angioplasty implant and graft
CPT/HCPCS: 99282

== ENCOUNTER 2023-12-06 12:01 | Emergency (ER) | payer MEDICARE, SELFPAY ==
[2023-12-06 12:02] VITALS: BP 203/92; PULSE 76; PULSE 88; RESP 15; RESP 16; TEMP 36.3; O2SAT 96; O2SAT 97; BMI 34.3
[2023-12-06 12:04] VITALS: BP 203/92; PULSE 73; RESP 15; TEMP 36.3; O2SAT 96
--- NOTE | 2023-12-06 12:40 | RAD_ITS ---
INDICATION: infection EXAMINATION/TECHNIQUE: X-RAY - LEFT XR Foot Min 3 Views 3 VIEWS COMPARISON: No relevant prior comparison study available FINDINGS: SOFT TISSUES: No soft tissue swelling or gas. Surgical clips in the distal ankle. BONES/JOINTS: Mild sclerosis of the fourth and third metatarsals likely due to previous injury. No evidence of acute fracture or dislocation. Plantar calcaneal spur. Preservation of the joint space.. No sclerotic or destructive changes observed. RAD/Foot min 3 Views IMPRESSION: No evidence of acute osseous changes. Electronically Signed: Iavn Olson MD at 13:10 EDT ,
--- NOTE | 2023-12-06 14:07 | EDS_ITS ---
HPI History of Present Illness Chief Complaint: Lower Extremity Injury Informant: patient Narrative Narrative: Patient presents due to concern for left great toe infection. She was seen here in the ER on the with drainage from beneath her toenail. She was started on doxycycline and referred to podiatry. She saw Dr. Ramirez in the office who removed her toenail. He had told her to stop the doxycycline. Patient states she has had some drainage from the area and is concerned that she should be on an antibiotic. No fever or chills. [facility] Medical History Abnormal stress test Atherosclerosis of coronary artery bypass graft without angina pectoris Bilateral carotid bruits Chronic renal insufficiency COPD suggested by initial evaluation BRIONES (dyspnea on exertion) Elevated troponin Essential hypertension Hyperlipidemia Hypersomnia Hypertension Morbid obesity due to excess calories New onset atrial fibrillation Non-rheumatic tricuspid valve insufficiency Nonrheumatic mitral (valve) insufficiency NSTEMI, initial episode of care Presence of stent in coronary artery (~09/01/22) Pure hypercholesterolemia Stage 2 moderate COPD by GOLD classification Home Medications Lactobacillus acidophilus (Acidophilus chewable tablet) 1 tab PO DAILY stomach 11/17/18 [History Last Taken 08/30/22] nitroglycerin 0.4 mg sublingual tablet 0.4 mg sublingual Q5M PRN Chest Pain #90 tabs 12/15/19 [Rx Last Taken 08/29/22] cholecalciferol (vitamin D3) 125 mcg (5,000 unit) capsule 125 mcg PO DAILY supplement 06/07/21 [History Last Taken 08/30/22] clopidogrel 75 mg tablet 75 mg PO DAILY antiplatelet #90 tabs 02/27/23 [Rx Last Taken Unknown] isosorbide mononitrate 30 mg tablet,extended release 24 hr 30 mg PO DAILY blood pressure #90 tabs 03/11/23 [Rx Last Taken Unknown] albuterol sulfate 2.5 mg/3 mL (0.083 %) solution for nebulization 2.5 mg (3 mL) inhalation Q4H PRN Sob &/Or Wheezing #180 mL 10/22/23 [Rx Last Taken Unknown] ipratropium 0.5 mg-albuterol 3 mg (2.5 mg base)/3 mL nebulization soln 3 ml inhalation Q4H PRN PRN SOB &/OR WHEEZING #180 mL 11/10/23 [Rx Last Taken Unknown] doxycycline hyclate 100 mg tablet 100 mg PO BID #14 tabs 11/28/23 [Rx Last Taken Unknown] apixaban 5 mg tablet 5 mg PO BID blood thinner #180 tabs 12/02/23 [Rx Last Taken Unknown] atenolol 25 mg tablet 25 mg PO DAILY heart rate #90 tabs 12/02/23 [Rx Last Taken Unknown] lisinopril 10 mg tablet 10 mg PO DAILY blood pressure #90 tabs 12/02/23 [Rx Last Taken Unknown] doxycycline monohydrate 100 mg capsule 100 mg PO BID #20 CAPSULES 12/06/23 [Rx Last Taken Unknown] Allergy/AdvReac Type Severity Reaction Status Date / Time azithromycin Allergy Hives Verified 12/06/23 12:05 [From Zithromax Z-Dago] ciprofloxacin Allergy Other Verified 12/06/23 12:05 Penicillins [PCN] Allergy Hives Verified 12/06/23 12:05 pineapple [Pineapple] Allergy Hives Verified 12/06/23 12:05 formoterol [From Dulera] AdvReac Severe Sore Verified 12/06/23 12:05 Throat & ear pain mometasone furoate AdvReac Severe Sore Verified 12/06/23 12:05 [From Dulera] Throat & ear pain metoprolol AdvReac Intermediate Does not Verified 12/06/23 12:05 control BP & she gets a headache dicyclomine AdvReac Mild Jittery Verified 12/06/23 12:05 prednisone AdvReac Other Verified 12/06/23 12:05 Family History Father Cancer Mother Hypertension Cancer Sister Breast cancer Brother CAD (coronary artery disease) Cancer Myocardial infarction stents Surgical History Aortocoronary bypass status (~04/18/01) History of section Presence of coronary angioplasty implant and graft (~09/14/14) Social History Smoking Status: Former smoker how long ago did patient quit smoking: Quit in 2006 alcohol intake: never substance use type: does not use caffeine: Yes Type: coffee Number of servings: 2 what type of physical activity do you participate in: walking frequency: daily duration: 60-90 minutes/day seatbelt use: always do you feel safe at home: Yes ROS ROS ED Constitutional Constitutional ED: Denies chills or fever(s) Eyes Eyes: Denies discharge from eye(s) ENT ENT ED: Denies discharge from eye(s), rhinorrhea or sore throat Cardiovascular Cardiovascular: Denies chest pain Respiratory/Chest Respiratory/Chest: Denies cough or dyspnea Gastrointestinal Gastrointestinal: Denies abdominal pain, nausea or vomiting Musculoskeletal Musculoskeletal: Reports extremity pain; Denies back pain Integumentary Denies Abrasions or rash Neurologic Neurologic: Denies headache(s) or weakness Psychiatric Psychiatric: Denies anxiety or depression Allergic/Immunologic Allergic/Immunologic ED: Denies lip swelling or urticaria EXAM Physical Exam Const Vital Signs: 12/06/23 12:02 12/06/23 12:02 12/06/23 12:04 Temperature 97.4 F L 97.4 F L 97.4 F L Temperature Source Temporal Temporal Temporal Pulse Rate 88 76 73 Respiratory Rate 16 15 15 Blood Pressure 203/92 H 203/92 H 203/92 H Blood Pressure Mean 129 129 129 Pulse Ox 97 96 96 Oxygen Delivery Method Room Air Room Air Room Air Positive well nourished and well developed General Appearance ED: well developed HEENT Reports moist mucous membranes Neck no lymphadenopathy Chest Wall inspection of chest normal and palpation of chest normal Resp normal respiratory effort and clear to auscultation bilaterally Cardio regular rate and regular rhythm Extremity Extremity Narrative: Scabbed tissue over the left great toe nailbed with some erythema on the forefoot. Psych mental status grossly normal MDM MDM MDM Narrative Medical decision making narrative: Left foot x-rays obtained to evaluate for any subcutaneous gas or bony destruction. Left foot is soaked for cleansing. Radiography Diagnostic Testing: Clinical Impression(s) from Imaging Studies Foot X-Ray 12/06/23 12:40 IMPRESSION: No evidence of acute osseous changes. Electronically Signed: Ivan Olson MD at 13:10 EDT , Treatment and Re-Evaluation :: Left foot x-ray per my interpretation reveals no acute abnormalities. Radiology interpretation reviewed and agrees. After soaking her left foot the area is cleansed. She does have slightly blistered tissue over the nailbed. Mild surrounding erythema. No drainage at this time. The erythema over the forefoot is from prior scar tissue and not related to infection. I spoke with Dr. Ramirez. Patient will be placed back on doxycycline and he will see her in the office early this week for follow-up. Discharge Plan Triage Chief Complaint: Lower Extremity Injury ED Provider: Radha Yang Dx/Rx/DC Orders Clinical Impression: Visit for wound check Instructions: ED Wound Check (Infection) Prescriptions: New doxycycline monohydrate 100 mg capsule 100 mg PO BID Qty: 20 0RF No Action Lactobacillus acidophilus chewable tablet tablet,chewable 1 tab PO DAILY nitroglycerin 0.4 mg tablet, sublingual 0.4 mg SUBLINGUAL Q5M PRN (Reason: Chest Pain) Qty: 90 6RF cholecalciferol (vitamin D3) 125 mcg (5,000 unit) capsule 125 mcg PO DAILY ipratropium-albuterol 0.5 mg-3 mg(2.5 mg base)/3 mL solution for nebulization 3 ml inhalation Q4H PRN PRN (Reason: SOB &/OR WHEEZING) Qty: 180 6RF doxycycline hyclate 100 mg tablet 100 mg PO BID Qty: 14 0RF clopidogrel 75 mg tablet 75 mg PO DAILY Qty: 90 3RF isosorbide mononitrate 30 mg tablet extended release 24 hr 30 mg PO DAILY Qty: 90 3RF albuterol sulfate 2.5 mg /3 mL (0.083 %) solution for nebulization 2.5 mg inhalation Q4H PRN (Reason: Sob &/Or Wheezing) Qty: 180 1RF apixaban 5 mg tablet 5 mg PO BID Qty: 180 3RF atenolol 25 mg tablet 25 mg PO DAILY Qty: 90 3RF lisinopril 10 mg tablet 10 mg PO DAILY Qty: 90 3RF Primary Care Provider: Valery Freed Referrals: Dylan Ramirez DPM [Med Staff - Active Staff] - 2 Days Valery Freed, [employer] [Primary Care Provider] - Disposition Disposition: Home, Self Care
[2023-12-06] MEDS: Doxycycline 100 MG CAPSULE PO (14:16)
== END 2023-12-06 14:27 | disposition home or self-care (01) ==
PROVIDERS: Emergency Provider Emergency Medicine; PCP Nurse Practitioner Family; Visit Provider Emergency Medicine
DX: S90.422A Blister (nonthermal), left great toe, initial encounter (principal); J44.9 Chronic obstructive pulmonary disease, unspecified; I48.91 Unspecified atrial fibrillation; X58.XXXA Exposure to other specified factors, initial encounter; I25.10 Atherosclerotic heart disease of native coronary artery without angina pectoris; I10 Essential (primary) hypertension; E78.5 Hyperlipidemia, unspecified; Z79.02 Long term (current) use of antithrombotics/antiplatelets; Z79.899 Other long term (current) drug therapy; Z87.891 Personal history of nicotine dependence; Z95.1 Presence of aortocoronary bypass graft; Z95.5 Presence of coronary angioplasty implant and graft
CPT/HCPCS: 73630; 99282

== ENCOUNTER → 2023-12-08 | Outpatient (CLI) | payer MEDICARE, SELFPAY | END | disposition home or self-care (01) | PROVIDERS: PCP Nurse Practitioner Family; Visit Provider Podiatrist | DX: I73.81 Erythromelalgia (principal); L97.522 Non-pressure chronic ulcer of other part of left foot with fat layer exposed | CPT/HCPCS: 87070; 87075; 87205 ==

== ENCOUNTER → 2025-02-17 | Outpatient (CLI) | payer MEDICARE, SELFPAY ==
[2025-02-17 13:07] LABS: Hematocrit 39.9 % (37-47); Hemoglobin 13.1 g/dL (12.0-15.0); Immature Granulocytes Count 0.030 X10^3/uL (0.0-0.0); Mean Corp Hgb Conc 32.8 g/dL (32-36); Mean Corpuscular Volume 92.6 fL (81-99); Mean Platelet Vol. 9.9 fl (6.2-12.0); NRBC Flagged by Analyzer 0 % (0-5); Platelet Count 257 K/mm3 (150-450); RBC Distribution Width CV 14.7 % (11.6-14.6); RBC Distribution Width SD 50.4 fl (35.1-43.9); Red Blood Count 4.31 M/mm3 (4.2-5.4); White Blood Count 7.2 K/mm3 (4.4-11.0)
[2025-02-17 14:29] LABS: AST(SGOT) 30 U/L (<=31); Alanine Aminotransfer ALT/SGPT 30 U/L (<=34); Albumin, Serum 4.0 g/dL (3.4-4.8); Alkaline Phosphatase 80 U/L (35-104); Anion Gap 17 (5-15); BUN 20 mg/dL (4-19); BUN/Creat Ratio 17.4 RATIO (10-20); Calcium,Total 10.3 mg/dL (7.6-11.0); Carbon Dioxide 22.1 mmol/L (21.0-32.0); Chloride 98 mmol/L (98-108); Cholesterol 401 mg/dL (<=200); Globulin 2.8 g/dL (2.2-4.2); Glucose 177 mg/dL (70-99); Low Density Lipoprotein Calc. 254 mg/dL; Potassium 4.6 mmol/L (3.3-5.1); Triglycerides 75 mg/dL; Very Low Density Lipoprotein 15 mg/dL (5-40); cholesterol:hdl ratio screen 3.04
[2025-02-17 14:58] LABS: Ferritin 76 ng/mL (22-378); Vitamin B12 823 pg/mL (180-914); Vitamin D,25 Hydroxy 179.0 ng/mL (30-100)
[2025-02-17 15:01] LABS: Iron 53 ug/dL (50-170); Magnesium 1.9 mg/dL (1.5-2.2)
== END | disposition home or self-care (01) ==
LOC: LAB 11:57
PROVIDERS: PCP Nurse Practitioner Family; Referring Provider Nurse Practitioner Family; Visit Provider Nurse Practitioner Family
DX: I10 Essential (primary) hypertension (principal); E78.00 Pure hypercholesterolemia, unspecified; E03.9 Hypothyroidism, unspecified; E55.9 Vitamin D deficiency, unspecified; E53.8 Deficiency of other specified B group vitamins; E61.2 Magnesium deficiency; D50.9 Iron deficiency anemia, unspecified
CPT/HCPCS: 36415; 80053; 80061; 82306; 82607; 82728; 83540; 83735; 84439; 84443; 85025

== ENCOUNTER → 2025-06-20 | Outpatient (CLI) | payer MEDICARE, SELFPAY ==
[2025-06-20 15:52] LABS: Hematocrit 39.6 % (37-47); Hemoglobin 13.2 g/dL (12.0-15.0); Immature Granulocytes Count 0.020 X10^3/uL (0.0-0.0); Mean Corp Hgb Conc 33.3 g/dL (32-36); Mean Corpuscular Volume 93.0 fL (81-99); Mean Platelet Vol. 9.7 fl (6.2-12.0); NRBC Flagged by Analyzer 0 % (0-5); Platelet Count 289 K/mm3 (150-450); RBC Distribution Width CV 14.8 % (11.6-14.6); RBC Distribution Width SD 50.8 fl (35.1-43.9); Red Blood Count 4.26 M/mm3 (4.2-5.4); White Blood Count 7.7 K/mm3 (4.4-11.0)
[2025-06-20 16:50] LABS: AST(SGOT) 31 U/L (<=31); Alanine Aminotransfer ALT/SGPT 20 U/L (<=34); Albumin, Serum 4.2 g/dL (3.4-4.8); Alkaline Phosphatase 80 U/L (35-104); Anion Gap 16 (5-15); BUN 33 mg/dL (4-19); BUN/Creat Ratio 26.2 RATIO (10-20); Bilirubin, Direct 0.12 mg/dL (0.00-0.30); Calcium,Total 10.2 mg/dL (7.6-11.0); Carbon Dioxide 18.3 mmol/L (21.0-32.0); Chloride 101 mmol/L (98-108); Cholesterol 475 mg/dL (<=200); Globulin 2.9 g/dL (2.2-4.2); Glucose 167 mg/dL (70-99); Low Density Lipoprotein Calc. 338 mg/dL; Potassium 5.3 mmol/L (3.3-5.1); Pro- Brain NATRIURETIC PEPTIDE 1084 pg/mL (<=1800); Triglycerides 84 mg/dL; Very Low Density Lipoprotein 17 mg/dL (5-40); cholesterol:hdl ratio screen 3.74
== END | disposition home or self-care (01) ==
LOC: LAB 15:19
PROVIDERS: PCP Nurse Practitioner Family; Referring Provider Nurse Practitioner Gerontology; Visit Provider Nurse Practitioner Gerontology
DX: E78.00 Pure hypercholesterolemia, unspecified (principal); R06.02 Shortness of breath
CPT/HCPCS: 36415; 80048; 80061; 80076; 83880; 85025